=== PATIENT | female | born 1945 | race Caucasian/White ===

== ENCOUNTER 2018-03-01 17:26 | Inpatient (IN) | payer MEDICARE, OTHER ==
[~2018-03-01] VITALS: Ht 152.4 cm; Wt 47.2 kg
--- NOTE | 2018-03-01 18:00 | NUR ---
PT CONFUSED, AGITATED, YELLING, UNCOMFORTABLE. MD NOTIFIED.
[2018-03-01 18:01] LABS: BASOPHILS # (AUTO) 0.1 K/uL (0.0-8.0); BASOPHILS % (AUTO) 1.2 % (0.0-2.0); EOSINOPHILS # (AUTO) 0.2 K/uL (0.0-0.7); EOSINOPHILS % (AUTO) 2.5 % (0.0-7.0); HEMATOCRIT 30.1 % (31.2-41.9); HEMOGLOBIN 10.1 g/dL (10.9-14.3); LYMPHOCYTES # (AUTO) 2.2 K/uL (20.0-40.0); LYMPHOCYTES % (AUTO) 32.8 % (20.5-51.5); MEAN CORPUSCULAR HEMOGLOBIN 29.3 uug (24.7-32.8); MEAN CORPUSCULAR HGB CONC 34 g/dL (32.3-35.6); MEAN CORPUSCULAR VOLUME 86.9 fL (75.5-95.3); MONOCYTES # (AUTO) 0.5 K/uL (2.0-10.0); MONOCYTES % (AUTO) 7.7 % (0.0-11.0); NEUTROPHILS # (AUTO) 3.7 K/uL (1.8-8.9); NEUTROPHILS % (AUTO) 55.8 % (38.5-71.5); PLATELET COUNT (AUTO) 262 K/uL (179-408); RED BLOOD CELL COUNT(AUTO) 3.46 MIL/uL (3.63-4.92); WHITE BLOOD COUNT (AUTO) 6.6 K/uL (3.8-11.8)
[2018-03-01 18:03] LABS: *BLOOD, URINE NEGATIVE (NEGATIVE); *CLARITY,URINE CLEAR (CLEAR); *COLOR,URINE YELLOW (YELLOW); *KETONES,URINE 1+ (NEGATIVE); *PROTEIN,URINE 1+ (NEGATIVE); *UROBILINOGEN,URINE 0.2 E.U./dl (NORMAL); LEUKOCYTE ESTERASE ,URINE NEGATIVE (NEGATIVE); NITRITE, URINE NEGATIVE (NEGATIVE); PH,URINE 5.5 (5.0-8.0); UGLUCOSE NEGATIVE (NEGATIVE)
[2018-03-01 18:04] LABS: *BILIRUBIN,URIN 1+ (NEGATIVE)
[2018-03-01 18:09] LABS: CARBON DIOXIDE 29 mmol/L (21-32); CHLORIDE 107 mmol/L (98-107); CREATININE 0.9 mg/dL (0.6-1.3); GLUCOSE 105 mg/dL (74-106); POTASSIUM 3.9 mmol/L (3.5-5.1); UREA NITROGEN, BLOOD 24 mg/dL (7-18); WBC,URINE 0-3 /HPF (0-3)
[2018-03-01 18:11] LABS: BACTERIA,URINE FEW /HPF (NONE SEEN); SQUAMOUS EPITHELIAL CELL,UR FEW /HPF (NONE SEEN)
[2018-03-01 18:14] LABS: ETHANOL < 3 MG/DL (0-0)
[2018-03-01 18:15] LABS: ALANINE AMINOTRANSFERASE 7 U/L (14-59); ALKALINE PHOSPHATASE 65 U/L (50-136); ASPARTATE AMINOTRANSFERASE 13 U/L (15-37); BILIRUBIN,DIRECT 0.1 mg/dL (0.0-0.2); BILIRUBIN,TOTAL 0.4 mg/dL (0.2-1.0)
[2018-03-01] MEDS ORDERED: MULT1TAB73 PO (18:15)
[2018-03-01] MEDS ORDERED: OMEP20CA10 PO (18:15)
[2018-03-01] MEDS ORDERED: QUET25TA PO (18:15)
[2018-03-01] MEDS ORDERED: CARB-93 PO (18:15)
[2018-03-01] MEDS ORDERED: AMLO2.5T2 PO (18:15)
[2018-03-01] MEDS ORDERED: CLON1TAB5 PO (18:15)
[2018-03-01] MEDS ORDERED: GABA-534 PO (18:15)
[2018-03-01] MEDS ORDERED: CYAN10009 PO (18:15)
[2018-03-01] MEDS ORDERED: FAMO40TA71 PO (18:15)
[2018-03-01] MEDS ORDERED: FOLI1TAB16 PO (18:15)
[2018-03-01] MEDS ORDERED: MIRT15TA PO (18:15)
[2018-03-01] MEDS ORDERED: CALC-1115 PO (18:15)
[2018-03-01] MEDS ORDERED: POLY17PO4 PO (18:15)
[2018-03-01] MEDS ORDERED: LORAZEPAM 2 MG/1 ML VIAL IM ONE ×2 (18:15→19:30)
[2018-03-01] MEDS ORDERED: SER (18:15)
[2018-03-01] MEDS ORDERED: QUET50TA PO ×2 (18:15)
[2018-03-01 18:16] LABS: *AMPHETAMINE, URINE NEGATIVE (NEGATIVE); *BARBITURATE, URINE NEGATIVE (NEGATIVE); *CANNABINOID, URINE NEGATIVE (NEGATIVE); *COCCAINE, URINE NEGATIVE (NEGATIVE); *OPIATE, URINE NEGATIVE (NEGATIVE); *PHENCYCLIDINE SCREEN,URINE NEGATIVE (NEGATIVE)
[2018-03-01] MEDS ORDERED: LORAZEPAM 2 MG/1 ML VIAL ONE ×2 (18:21→19:28)
--- NOTE | 2018-03-01 18:30 | NUR ---
PT MEDICALLY CLEARED.
--- NOTE | 2018-03-01 18:34 | NUR ---
KAY PURDY AT BEDSIDE FOR PSYCH EVAL.
--- NOTE | 2018-03-01 19:15 | NUR ---
REPORT RECEIVED FROM [facility]
--- NOTE | 2018-03-01 19:30 | NUR ---
PT IS AGGITATED AND SCREAMING. MADE AWARE. SITTER IS HERE NOW.
--- NOTE | 2018-03-01 21:03 | NUR ---
PT IN BED. PT IS RESTING WITH EYES CLOSED. SITTER IS AT BEDSIDE. BED IS IN THE LOWEST POSITION WITH SIDERAILS UP. NO SIGNS OF DISTRESS WITNESSED AT THIS TIME.
--- NOTE | 2018-03-01 22:30 | NUR ---
REPORT GIVEN TO MHU NURSE, MARILYN
--- NOTE | 2018-03-01 23:00 | NUR ---
Pt. admitted to MHU, under care of Dr. CLAUDIO/AUGUST Belongs List completed
[2018-03-01] MEDS ORDERED: MAG HYDROX/AL HYDROX/SIMETH 30 ML LIQUID UDC PO PRN (23:15)
[2018-03-01] MEDS ORDERED: ACETAMINOPHEN 650 MG SUPP.RECT RC PRN (23:15)
[2018-03-02] MEDS: ACETAMINOPHEN 325 MG TABLET PO PRN (00:34)
[2018-03-02] MEDS: TEMAZEPAM 7.5 MG CAPSULE PO PRN ×2 (00:34→22:39)
[2018-03-02] MEDS ORDERED: TEMAZEPAM 7.5 MG CAPSULE ONE (00:38)
[2018-03-02] MEDS ORDERED: ACETAMINOPHEN 325 MG TABLET ONE (00:39)
[2018-03-02] MEDS: LORAZEPAM 0.5 MG TABLET PO PRN ×2 (05:39→14:26)
[2018-03-02] MEDS ORDERED: LORAZEPAM 0.5 MG TABLET ONE (05:44)
[2018-03-02 07:30] VITALS: BP 119/54
[2018-03-02] MEDS ORDERED: QUETIAPINE FUMARATE 25 MG TABLET PO PRN (12:00)
[2018-03-02] MEDS ORDERED: MIRALAX 17 GM POWD.PACK PO PRN (13:00)
[2018-03-02] MEDS: OLANZAPINE 2.5 MG TABLET PO SCH ×3 (13:00→18:18)
[2018-03-02] MEDS ORDERED: GABAPENTIN 300 MG CAPSULE PO SCH (13:00)
[2018-03-02] MEDS ORDERED: CARBIDOPA/LEVODOPA 25-100MG TABLET PO SCH (13:51)
[2018-03-02 15:00] VITALS: BP 191/86
[2018-03-02 16:25] VITALS: BP 168/70
[2018-03-02] MEDS ORDERED: OLANZAPINE 10 MG VIAL IM ONE ×2 (16:30→17:00)
[2018-03-02 17:51] VITALS: BP 157/55
--- NOTE | 2018-03-02 18:15 | NUR ---
GPS: Nursing Notes: Severe Agitation: patient is anxious restless confused disoriented difficult to redirect. assisted with adls, sitting up in gerichair with table for supervisor safety deposit at side, patient provided with meds today, patient continues anxious, provided with PRN PO meds continues anxious and restless, resting momentarily, assisted to toilet then resting in bed for maybe 15 to 20 minutes then continues to be restless climbing out of bed patient is fall risk, overestimates without regard for own safety, grabbing at staff, calling out other names, fearful when ambulating redirected for emotional support. continue to monitor redirect and provide medication to assist with coping.
[2018-03-02] MEDS: GABAPENTIN 300 MG CAPSULE PO SCH (18:18)
[2018-03-02] MEDS: CARBIDOPA/LEVODOPA 25-100MG TABLET PO SCH (18:18)
[2018-03-02 19:34] VITALS: BP 160/96
[2018-03-03] MEDS: LORAZEPAM 0.5 MG TABLET PO PRN ×2 (00:22→20:57)
--- NOTE | 2018-03-03 06:26 | NUR ---
Received pt, pt disoriented, confused, experiencing either dementia or psychosis, pt complied with medical science liaison, pt did not sleep well, pt screamed and moaned almost the entire night. Pt would answer questions periodically when asked if she was in pain pt stated "no", when asked if she wanted to go home pt stated "yes", when asked why she was hollering pt stated "that she did not know". When I asked pt if she wanted to stand up because pt appears to be trying to get out of her ambrose chair pt stated "yes". Pt is restless, anxious, A & O X1. Pt consumed 100% of ensure, 1 orange sherbert ice cream and 1 cup of water. Pt has reddish/ pink bruises on her arms. Pt on 1:1 sitter for safety.
[2018-03-03] MEDS: PANTOPRAZOLE SODIUM 40 MG TABLET.DR PO SCH (06:48)
[2018-03-03] MEDS ORDERED: FOLIC ACID 1 MG TABLET PO SCH (09:00)
[2018-03-03] MEDS ORDERED: Medication Not On Formulary EA (Multivitamins (Multivitamin) 1 TAB) PO SCH (09:00)
[2018-03-03] MEDS: CALCIUM CARB/VITAMIN D 600-400 MG TABLET PO SCH (09:33)
[2018-03-03] MEDS: CYANOCOBALAMIN 1,000 MCG TABLET PO SCH (09:33)
[2018-03-03] MEDS: QUETIAPINE FUMARATE 25 MG TABLET PO SCH ×3 (09:34→17:27)
[2018-03-03] MEDS: MULTIVITAMINS,THERAPEUTIC TABLET PO SCH (09:34)
[2018-03-03] MEDS: GABAPENTIN 300 MG CAPSULE PO SCH ×3 (09:35→17:26)
[2018-03-03] MEDS: OLANZAPINE 2.5 MG TABLET PO SCH ×3 (09:36→17:27)
[2018-03-03] MEDS: AMLODIPINE 2.5 MG TABLET PO SCH (09:37)
[2018-03-03] MEDS: CARBIDOPA/LEVODOPA 25-100MG TABLET PO SCH ×3 (09:37→17:26)
--- NOTE | 2018-03-03 10:53 | NUR ---
Initial discharge plan: Patient is currently living at home ([address] [place] [address]) with her , Javier [[phone]] and adult son. Per patients , he would like her to return, but wants to wait to see if patients condition improves. If patient behavior does not improve, he is open to having patient go to a SNF or home with HH. plate take out worker will continue to collaborate with patients and MD on a safe and proper discharge plan.
[2018-03-03] MEDS: FOLIC ACID 0.4 MG TABLET PO SCH (11:57)
[2018-03-03 13:00] VITALS: BP 125/51
--- NOTE | 2018-03-03 19:35 | NUR ---
RECEIVED PATIENT IN HER ROOM, IN BED SHE IS NOTED SLEEPING, BUT EASILY AROUSABLE. SHE IS NOTED A/O X 1. SITTER AT BEDSIDE; CONTINUE ON 1:1 SUPERVISION FOR SAFETY AND FALL PRECAUTION. SHE IS NOTED CALM AND PLEASANT AT THIS TIME. CONTINUE CONFUSED, DISORGANIZED, UNABLE TO VERBALIZE FEELINGS, POOR HISTORIAN, IMPAIRED INSIGHT AND JUDGMENT, FLAT AFFECT, LOW MOOD. SAFETY WAS EMPHASIS. WILL CONTINUE TO MONITOR.
[2018-03-03 20:00] VITALS: BP 145/65
[2018-03-03] MEDS: ACETAMINOPHEN 325 MG TABLET PO PRN (20:57)
--- NOTE | 2018-03-03 21:05 | NUR ---
PATIENT IS NOTED ANXIOUS, AGITATED, AND YELLING AT TIME. SHE WAS REPOSITIONED AND REDIRECTED. TYLENOL 650MG PO PRN AND ATIVAN 0.5MG PO PRN WAS GIVEN PER NURSING ASSESSMENT. WILL CONTINUE TO MONITOR.
[2018-03-03] MEDS: TEMAZEPAM 7.5 MG CAPSULE PO PRN (22:21)
[2018-03-04] MEDS: LORAZEPAM 0.5 MG TABLET PO PRN (06:49)
[2018-03-04] MEDS: PANTOPRAZOLE SODIUM 40 MG TABLET.DR PO SCH (06:58)
[2018-03-04] MEDS: MULTIVITAMINS,THERAPEUTIC TABLET PO SCH (08:20)
[2018-03-04] MEDS: GABAPENTIN 300 MG CAPSULE PO SCH ×3 (08:20→16:08)
[2018-03-04] MEDS: CYANOCOBALAMIN 1,000 MCG TABLET PO SCH (08:20)
[2018-03-04] MEDS: CALCIUM CARB/VITAMIN D 600-400 MG TABLET PO SCH (08:20)
[2018-03-04] MEDS: CARBIDOPA/LEVODOPA 25-100MG TABLET PO SCH ×3 (08:20→16:08)
[2018-03-04] MEDS: OLANZAPINE 2.5 MG TABLET PO SCH ×3 (08:20→16:08)
[2018-03-04] MEDS: AMLODIPINE 2.5 MG TABLET PO SCH (08:21)
[2018-03-04] MEDS: FOLIC ACID 0.4 MG TABLET PO SCH (08:21)
[2018-03-04] MEDS: QUETIAPINE FUMARATE 25 MG TABLET PO SCH ×3 (08:21→16:08)
[2018-03-04 08:38] VITALS: BP 158/59
[2018-03-04 14:47] VITALS: BP 108/50
[2018-03-04] MEDS: busPIRone 5 MG TABLET PO SCH (17:00)
--- NOTE | 2018-03-04 19:45 | NUR ---
RECEIVED PATIENT IN HER ROOM, IN BED SHE IS NOTED SLEEPING, BUT EASILY AROUSABLE. SHE IS NOTED A/O X 1. SITTER AT BEDSIDE; CONTINUE ON 1:1 SUPERVISION FOR SAFETY AND FALL PRECAUTION. SHE IS NOTED CALM AND PLEASANT AT THIS TIME. HOWEVER, UNABLE TO VERBALIZE FEELINGS, POOR HISTORIAN, IMPAIRED INSIGHT AND JUDGMENT, FLAT AFFECT, LOW MOOD. SAFETY WAS EMPHASIS. WILL CONTINUE TO MONITOR.
[2018-03-04 20:00] VITALS: BP 135/61
[2018-03-05] MEDS: ACETAMINOPHEN 325 MG TABLET PO PRN ×2 (00:58→21:55)
[2018-03-05] MEDS: TEMAZEPAM 7.5 MG CAPSULE PO PRN ×2 (00:58→21:54)
[2018-03-05] MEDS: PANTOPRAZOLE SODIUM 40 MG TABLET.DR PO SCH ×2 (07:00→08:18)
[2018-03-05 07:30] VITALS: BP 153/67
[2018-03-05] MEDS: CYANOCOBALAMIN 1,000 MCG TABLET PO SCH (08:17)
[2018-03-05] MEDS: GABAPENTIN 300 MG CAPSULE PO SCH ×3 (08:17→16:17)
[2018-03-05] MEDS: busPIRone 5 MG TABLET PO SCH ×3 (08:17→16:17)
[2018-03-05] MEDS: CARBIDOPA/LEVODOPA 25-100MG TABLET PO SCH ×3 (08:17→16:25)
[2018-03-05] MEDS: CALCIUM CARB/VITAMIN D 600-400 MG TABLET PO SCH (08:18)
[2018-03-05] MEDS: QUETIAPINE FUMARATE 25 MG TABLET PO SCH ×3 (08:18→16:17)
[2018-03-05] MEDS: AMLODIPINE 2.5 MG TABLET PO SCH (08:18)
[2018-03-05] MEDS: MULTIVITAMINS,THERAPEUTIC TABLET PO SCH (08:18)
[2018-03-05] MEDS: FOLIC ACID 0.4 MG TABLET PO SCH (08:19)
[2018-03-05] MEDS: OLANZAPINE 2.5 MG TABLET PO SCH ×3 (08:19→16:17)
[2018-03-05] MEDS: LORAZEPAM 0.5 MG TABLET PO PRN ×2 (08:42→15:29)
[2018-03-05 15:45] VITALS: BP 131/60
--- NOTE | 2018-03-05 19:20 | NUR ---
RECEIVED PATIENT IN HER ROOM, SITTING IN THE CLOVER CHAIR. PPERAS VERY SLEEP. BUT AROUSABLE. NON-VERBAL AT THIS TIME, FLAT AFFECT. SITTER AT BEDSIDE; CONTINUE ON 2:1 SUPERVISION FOR SAFETY AND FALL PRECAUTION. CALM AT THIS TIME. STILL CONFUSED, DISORGANIZED, UNABLE TO VERBALIZE FEELINGS, IMPAIRED INSIGHT AND JUDGMENT LOW MOOD. SAFETY WAS EMPHASIS. WILL CONTINUE TO MONITOR.
[2018-03-05 20:19] VITALS: BP 133/63
[2018-03-06] MEDS: LORAZEPAM 0.5 MG TABLET PO PRN ×2 (00:25→23:32)
[2018-03-06 08:00] VITALS: BP 183/87
[2018-03-06] MEDS: MULTIVITAMINS,THERAPEUTIC TABLET PO SCH (09:07)
[2018-03-06] MEDS: OLANZAPINE 2.5 MG TABLET PO SCH ×3 (09:07→17:54)
[2018-03-06] MEDS: CALCIUM CARB/VITAMIN D 600-400 MG TABLET PO SCH (09:07)
[2018-03-06] MEDS: QUETIAPINE FUMARATE 25 MG TABLET PO SCH ×3 (09:08→17:50)
[2018-03-06] MEDS: CARBIDOPA/LEVODOPA 25-100MG TABLET PO SCH ×3 (09:08→17:50)
[2018-03-06] MEDS: CYANOCOBALAMIN 1,000 MCG TABLET PO SCH (09:08)
[2018-03-06] MEDS: busPIRone 5 MG TABLET PO SCH ×3 (09:08→17:49)
[2018-03-06] MEDS: GABAPENTIN 300 MG CAPSULE PO SCH ×3 (09:09→17:50)
[2018-03-06] MEDS: AMLODIPINE 2.5 MG TABLET PO SCH (09:09)
[2018-03-06] MEDS: FOLIC ACID 0.4 MG TABLET PO SCH (09:11)
[2018-03-06 16:00] VITALS: BP 138/53
[2018-03-06 20:00] VITALS: BP 151/73
[2018-03-06] MEDS: TEMAZEPAM 7.5 MG CAPSULE PO PRN (21:59)
[2018-03-06] MEDS: ACETAMINOPHEN 325 MG TABLET PO PRN (23:36)
--- NOTE | 2018-03-07 04:14 | NUR ---
Received pt to care, pt laying in bed on 1:1 for safety, pt disoriented, confused, A&O X1, rambling to herself, pt complied with taking meds, pt also intermittently made moaning sounds so va underwriter administered PRN restoril and a few hours later ativan 0.5 and tylenol 650. Pt then went to sleep.
[2018-03-07] MEDS: PANTOPRAZOLE SODIUM 40 MG TABLET.DR PO SCH (06:55)
[2018-03-07 07:30] VITALS: BP 165/75
[2018-03-07 08:23] LABS: BASOPHILS # (AUTO) 0.1 K/uL (0.0-8.0); EOSINOPHILS # (AUTO) 0.2 K/uL (0.0-0.7); EOSINOPHILS % (AUTO) 2.5 % (0.0-7.0); MONOCYTES # (AUTO) 0.8 K/uL (2.0-10.0); NEUTROPHILS # (AUTO) 6.2 K/uL (1.8-8.9)
[2018-03-07 08:36] LABS: BASOPHILS % (AUTO) 0.6 % (0.0-2.0); HEMATOCRIT 32.2 % (31.2-41.9); HEMOGLOBIN 10.7 g/dL (10.9-14.3); LYMPHOCYTES # (AUTO) 1.5 K/uL (20.0-40.0); LYMPHOCYTES % (AUTO) 16.8 % (20.5-51.5); MEAN CORPUSCULAR HEMOGLOBIN 28.8 uug (24.7-32.8); MEAN CORPUSCULAR HGB CONC 33 g/dL (32.3-35.6); MEAN CORPUSCULAR VOLUME 86.7 fL (75.5-95.3); MONOCYTES % (AUTO) 8.9 % (0.0-11.0); NEUTROPHILS % (AUTO) 71.2 % (38.5-71.5); PLATELET COUNT (AUTO) 291 K/uL (179-408); RED BLOOD CELL COUNT(AUTO) 3.72 MIL/uL (3.63-4.92)
[2018-03-07 08:37] LABS: WHITE BLOOD COUNT (AUTO) 8.7 K/uL (3.8-11.8)
[2018-03-07 08:38] LABS: CARBON DIOXIDE 30 mmol/L (21-32); CHLORIDE 106 mmol/L (98-107); CREATININE 0.6 mg/dL (0.6-1.3); GLUCOSE 103 mg/dL (74-106); MAGNESIUM 2.1 mg/dL (1.8-2.4); PHOSPHOROUS 3.6 mg/dL (2.5-4.9); POTASSIUM 4.2 mmol/L (3.5-5.1); UREA NITROGEN, BLOOD 29 mg/dL (7-18)
[2018-03-07] MEDS: CALCIUM CARB/VITAMIN D 600-400 MG TABLET PO SCH (09:01)
[2018-03-07] MEDS: CYANOCOBALAMIN 1,000 MCG TABLET PO SCH (09:01)
[2018-03-07] MEDS: busPIRone 5 MG TABLET PO SCH ×3 (09:01→16:59)
[2018-03-07] MEDS: FOLIC ACID 0.4 MG TABLET PO SCH (09:01)
[2018-03-07] MEDS: AMLODIPINE 2.5 MG TABLET PO SCH (09:02)
[2018-03-07] MEDS: CARBIDOPA/LEVODOPA 25-100MG TABLET PO SCH ×3 (09:06→16:59)
[2018-03-07] MEDS: MULTIVITAMINS,THERAPEUTIC TABLET PO SCH (09:06)
[2018-03-07] MEDS: OLANZAPINE 2.5 MG TABLET PO SCH ×3 (09:08→16:59)
[2018-03-07] MEDS: GABAPENTIN 300 MG CAPSULE PO SCH ×3 (09:08→16:59)
[2018-03-07] MEDS: QUETIAPINE FUMARATE 25 MG TABLET PO SCH ×3 (09:10→16:59)
--- NOTE | 2018-03-07 10:09 | NUR ---
Discharge Planning: cloth printing utility worker called to check in with patient's , Javier [[phone]], about potential discharge plan. Per Javier, he would like to continue to monitor patient's care. Ultimately, he would like to see patient return home with him. cloth printing utility worker inquired if Javier would be agreeable with patient going to a SNF when ready to discharge in order to stabilize more. Javier states that "he really can't say right now". However, if patient did need to go to a SNF, then Javier states he would like her to go to [facility] in [place], [place]. cloth printing utility worker agreed to check in with Javier later this week.
[2018-03-07] MEDS: LORAZEPAM 0.5 MG TABLET PO PRN (15:22)
[2018-03-07] MEDS: ACETAMINOPHEN 325 MG TABLET PO PRN (15:22)
--- NOTE | 2018-03-07 15:23 | NUR ---
Patient agitated and screaming. PRN Ativan given
[2018-03-07 16:41] VITALS: BP 154/70
[2018-03-07 19:30] VITALS: BP 132/62
[2018-03-07] MEDS ORDERED: ALBUTEROL SULFATE 2.5 MG/ 0.5 ML NEBU NEB PRN (23:15)
[2018-03-07] MEDS ORDERED: ALBUTEROL SULFATE 2.5 MG/3 ML NEBU ONE (23:21)
--- NOTE | 2018-03-08 02:32 | NUR ---
Pt was coughing and extremely congested earlier this shift, encouraged pt to cough and spit out phlegm but pt unable to follow instructions due to current altered mental status. Dr. Juan Jorge was notified, received orders for suctioning and for breathing treatment. Respiratory therapist was called and came to suction pt and provided breathing treatment. Pt still congested but much improved than earlier. Pt now sleeping, vital signs stable. 1:1 sitter at bedside for close observation. Will continue to monitor pt closely throughout shift.
[2018-03-08] MEDS ORDERED: ALBUTEROL SULFATE 2.5 MG/3 ML NEBU ONE (05:47)
[2018-03-08] MEDS: PANTOPRAZOLE SODIUM 40 MG TABLET.DR PO SCH (06:36)
[2018-03-08 07:30] VITALS: BP 159/73
[2018-03-08] MEDS: FOLIC ACID 0.4 MG TABLET PO SCH (08:49)
[2018-03-08] MEDS: CALCIUM CARB/VITAMIN D 600-400 MG TABLET PO SCH (08:49)
[2018-03-08] MEDS: GABAPENTIN 300 MG CAPSULE PO SCH ×2 (08:49→12:21)
[2018-03-08] MEDS: MULTIVITAMINS,THERAPEUTIC TABLET PO SCH (08:50)
[2018-03-08] MEDS: CYANOCOBALAMIN 1,000 MCG TABLET PO SCH (08:50)
[2018-03-08] MEDS: CARBIDOPA/LEVODOPA 25-100MG TABLET PO SCH ×2 (08:50→12:21)
[2018-03-08] MEDS: OLANZAPINE 2.5 MG TABLET PO SCH ×2 (09:00→12:21)
[2018-03-08] MEDS: QUETIAPINE FUMARATE 25 MG TABLET PO SCH ×2 (09:00→12:21)
[2018-03-08] MEDS: AMLODIPINE 2.5 MG TABLET PO SCH (09:00)
[2018-03-08] MEDS: busPIRone 5 MG TABLET PO SCH ×2 (09:00→12:21)
[2018-03-08] MEDS ORDERED: ALBUTEROL SULFATE 2.5 MG/3 ML NEBU NEB PRN (09:00)
--- NOTE | 2018-03-08 14:00 | NUR ---
Patient is being transferred to Telemetry unit, dx: altered mental status. Pt continues to be congested and require suctioning. Pt is NPO due to aspiration precautions. Pt was ordered swallow eval. Pt is A/O x 0, unable to comprehend instructions. Pt requires max assistance. Pt is sedated at times, but arousable. Pt's Javier Higgins was notified. Report was given to KARYNA Alanis
--- NOTE | 2018-03-08 14:14 | NUR ---
Discharge Planning: artificial marble worker faxed patient packet to [facility][phone: ; fax: ] for review. artificial marble worker received callback from Saundra at facility stating that patient will not be accepted. artificial marble worker will continue to work on a safe and proper discharge for patient.
--- NOTE | 2018-03-08 14:54 | NUR ---
Discharge planning: Patient is being discharged from the Mental Health Unit to the medical floor for further observation. Patient's , Javier [[phone]], has been notified. cripple worker has provided patient with mental health resources including [facility] [[address], [place] [address]; ], [facility] [ ], and [place] [facility] [ ]. Patient was also provided with caregiving resources including [facility] [[phone]], [facility] Care Assistance [[phone]], and [facility] [[phone]]. cripple worker will continue to provide support as needed to patient and family.
[2018-03-08] MEDS ORDERED: busPIRone 5 MG TABLET PO SCH (17:00)
== END 2018-03-08 14:00 | disposition short-term general hospital (02) | DRG 884 ==
LOC: ER 17:29 → GPS 22:43
PROVIDERS: ADMIT Psychiatry & Neurology Psychosomatic Medicine; ATTEND Hospitalist
DX: F06.0 Psychotic disorder with hallucinations due to known physiological condition (principal); F02.80 Dementia in other diseases classified elsewhere, unspecified severity, without behavioral disturbance, psychotic disturbance, mood disturbance, and anxiety; R62.7 Adult failure to thrive; K21.9 Gastro-esophageal reflux disease without esophagitis; F41.9 Anxiety disorder, unspecified; Z87.891 Personal history of nicotine dependence; R26.81 Unsteadiness on feet; G31.83 Neurocognitive disorder with Lewy bodies; E78.5 Hyperlipidemia, unspecified; Z87.440 Personal history of urinary (tract) infections; R13.10 Dysphagia, unspecified; I10 Essential (primary) hypertension
CPT/HCPCS: 36415; 71045; 80307; 83735; 84100; 85025; 87070; 92610; 94640; 97116; 97530; A4663; G0480; J2060; J2358

== ENCOUNTER 2018-03-08 14:20 | Inpatient (IN) | payer MEDICARE, OTHER ==
[~2018-03-08] VITALS: Ht 160 cm; Wt 49.7 kg
[~2018-03-08 14:20] MED LIST: AMLO2.5T2 PO; CALC-1115 PO; CARB-93 PO; CYAN10009 PO; FAMO40TA71 PO; FOLI1TAB16 PO; MULT1TAB73 PO; OMEP20CA10 PO; POLY17PO4 PO
[2018-03-08] MEDS ORDERED: ONDANSETRON 4 MG/2 ML VIAL IV PRN (15:00)
--- NOTE | 2018-03-08 15:00 | NUR ---
Pt received from U lethargic, a&ox1. Pt stable and nad noted upon admission.
[2018-03-08 15:20] VITALS: BP 139/63
[2018-03-08] MEDS: IV D5/ 0.9% NACL 1,000 ML IV PRN (16:00)
[2018-03-08 16:47] LABS: *BILIRUBIN,URIN NEGATIVE (NEGATIVE); *BLOOD, URINE NEGATIVE (NEGATIVE); *COLOR,URINE YELLOW (YELLOW); *KETONES,URINE NEGATIVE (NEGATIVE); *PROTEIN,URINE NEGATIVE (NEGATIVE); *UROBILINOGEN,URINE 0.2 E.U./dl (NORMAL); LEUKOCYTE ESTERASE ,URINE TRACE (NEGATIVE); NITRITE, URINE NEGATIVE (NEGATIVE); UGLUCOSE NEGATIVE (NEGATIVE)
[2018-03-08 16:48] LABS: *CLARITY,URINE SLIGHTLY CLOUDY (CLEAR)
[2018-03-08 16:50] LABS: BACTERIA,URINE MANY /HPF (NONE SEEN); RBC,URINE 0-3 /HPF (0-3); SQUAMOUS EPITHELIAL CELL,UR FEW /HPF (NONE SEEN)
[2018-03-08] MEDS: CARBIDOPA/LEVODOPA 25-100MG TABLET PO SCH (17:00)
[2018-03-08] MEDS: LEVOFLOXACIN 750MG/D5W 750 MG in PREMIXED 1 EACH IV SCH (17:45)
--- NOTE | 2018-03-08 17:56 | NUR ---
ordered blood culture; blood culture drawn first before administering levaquin; pt also seen by Dr Cid; she spoke to pt's ; CT head ordered and carried out; skin care done; will order low air loss mattress and wound care consult.
[2018-03-08 20:00] VITALS: BP 153/87
[2018-03-08] MEDS: ALBUTEROL SULFATE 2.5 MG/3 ML NEBU NEB PRN (23:15)
[2018-03-08] MEDS: IPRATROPIUM BROMIDE 0.5 MG/2.5 ML NEBU NEB PRN (23:15)
[2018-03-09] VITALS (7 sets, daily range): BP systolic 133–178; BP diastolic 65–78
[2018-03-09] MEDS: ACETAMINOPHEN 650 MG SUPP.RECT RC PRN ×3 (02:04→20:51)
[2018-03-09] MEDS ORDERED: ENALAPRILAT DIHYDRATE 1.25 MG/1 ML VIAL IV ONE (02:09)
[2018-03-09] MEDS: ENALAPRILAT DIHYDRATE 1.25 MG/1 ML VIAL IV PRN ×2 (02:15→14:38)
[2018-03-09] MEDS: IV D5/ 0.9% NACL 1,000 ML IV PRN (03:49)
[2018-03-09 06:30] LABS: BASOPHILS % (AUTO) 0.3 % (0.0-2.0); HEMATOCRIT 29.1 % (31.2-41.9); HEMOGLOBIN 9.8 g/dL (10.9-14.3); LYMPHOCYTES # (AUTO) 0.8 K/uL (20.0-40.0); LYMPHOCYTES % (AUTO) 10.3 % (20.5-51.5); MEAN CORPUSCULAR HEMOGLOBIN 29.1 uug (24.7-32.8); MEAN CORPUSCULAR HGB CONC 34 g/dL (32.3-35.6); MEAN CORPUSCULAR VOLUME 86.9 fL (75.5-95.3); MONOCYTES # (AUTO) 0.6 K/uL (2.0-10.0); MONOCYTES % (AUTO) 6.9 % (0.0-11.0); NEUTROPHILS # (AUTO) 6.7 K/uL (1.8-8.9); NEUTROPHILS % (AUTO) 82.5 % (38.5-71.5); PLATELET COUNT (AUTO) 290 K/uL (179-408); RED BLOOD CELL COUNT(AUTO) 3.35 MIL/uL (3.63-4.92); WHITE BLOOD COUNT (AUTO) 8.1 K/uL (3.8-11.8)
[2018-03-09 06:53] LABS: CARBON DIOXIDE 28 mmol/L (21-32); CHLORIDE 110 mmol/L (98-107); CHOLESTEROL 155 mg/dL (<200); CREATININE 0.8 mg/dL (0.6-1.3); GLUCOSE 150 mg/dL (74-106); HDL CHOLESTEROL 77 mg/dL (40-60); MAGNESIUM 2.1 mg/dL (1.8-2.4); PHOSPHOROUS 3.4 mg/dL (2.5-4.9); POTASSIUM 3.8 mmol/L (3.5-5.1); TRIGLYCERIDES 35 MG/DL (30-150); UREA NITROGEN, BLOOD 43 mg/dL (7-18)
[2018-03-09 06:57] LABS: THYROID STIMULATING HORMONE 1.214 mIU/mL (0.358-3.740)
[2018-03-09] MEDS: PANTOPRAZOLE SODIUM 40 MG VIAL IV SCH (08:38)
[2018-03-09] MEDS: Z GUARD REMEDY PASTE 57 GM TUBE TOP PRN (08:49)
[2018-03-09] MEDS: CARBIDOPA/LEVODOPA 25-100MG TABLET PO SCH ×3 (09:00→16:19)
[2018-03-09] MEDS: IPRATROPIUM BROMIDE 0.5 MG/2.5 ML NEBU NEB PRN (09:26)
[2018-03-09] MEDS: ALBUTEROL SULFATE 2.5 MG/3 ML NEBU NEB PRN (09:26)
[2018-03-09] MEDS: POTASSIUM CHLORIDE 10 MEQ in IV D5 1/2 NS 1000 ML 1,000 ML IV PRN (12:31)
[2018-03-09 12:47] LABS: IRON, SERUM 9 ug/dL (50-175)
[2018-03-09] MEDS: LEVOFLOXACIN 750MG/D5W 750 MG in PREMIXED 1 EACH IV SCH (14:37)
--- NOTE | 2018-03-09 18:06 | NUR ---
NURSING NOTES Patient rested well in between care; placed on low air loss mattress and repositioned q2h; seen by Dr Camara and new orders made and carried out; pt remains pulling lines so mittens are maintained and checked q2h; HHN per RT; suction via nasal trumpet and orally as well; at bedside this afternoon; incontinence care done during turning; a/w Swallow eval; pt intermittently awake; pt is also seen by Dr Montemayor and Dr Cid; continue to monitor; continue plan of care.
--- NOTE | 2018-03-09 19:41 | NUR ---
PATIENT IS NONVERBAL BUT RESPONSIVE TO TACTILE STIMULI. NO FACIAL GRIMACING OR SIGNS OF PAIN ON ASSESSMENT. RUNNING LOW GRADE FEVER, WILL MEDICATE ORDERED. SAFETY, ASPIRATION PRECAUTIONS IN PLACE. WILL CONTINUE TO MONITOR PATIENT
[2018-03-09 22:53] LABS: *OCCULT BLOOD STOOL POSITIVE (NEGATIVE)
[2018-03-10] VITALS (7 sets, daily range): BP systolic 154–184; BP diastolic 65–79
[2018-03-10] MEDS: ENALAPRILAT DIHYDRATE 1.25 MG/1 ML VIAL IV PRN ×3 (00:04→19:08)
[2018-03-10] MEDS: POTASSIUM CHLORIDE 10 MEQ in IV D5 1/2 NS 1000 ML 1,000 ML IV PRN ×2 (00:31→11:04)
--- NOTE | 2018-03-10 01:15 | NUR ---
BP ELEVATED AFTER PRN MD SUJATHA MADE AWARE NEW ORDER FOR CLONIDINE PATCH RECEIVED AND CARRIED OUT
[2018-03-10] MEDS ORDERED: CLONIDINE-TTS 1 PATCH TD SCH (01:30)
[2018-03-10] MEDS ORDERED: CLONIDINE-TTS 1 PATCH TD ONE (01:45)
[2018-03-10 05:40] LABS: BASOPHILS % (AUTO) 0.3 % (0.0-2.0); HEMATOCRIT 29.7 % (31.2-41.9); HEMOGLOBIN 9.8 g/dL (10.9-14.3); LYMPHOCYTES # (AUTO) 0.8 K/uL (20.0-40.0); LYMPHOCYTES % (AUTO) 7.7 % (20.5-51.5); MEAN CORPUSCULAR HEMOGLOBIN 28.2 uug (24.7-32.8); MEAN CORPUSCULAR HGB CONC 33 g/dL (32.3-35.6); MEAN CORPUSCULAR VOLUME 85.3 fL (75.5-95.3); MONOCYTES # (AUTO) 0.7 K/uL (2.0-10.0); MONOCYTES % (AUTO) 6.7 % (0.0-11.0); NEUTROPHILS # (AUTO) 9.2 K/uL (1.8-8.9); NEUTROPHILS % (AUTO) 85.3 % (38.5-71.5); PLATELET COUNT (AUTO) 278 K/uL (179-408); RED BLOOD CELL COUNT(AUTO) 3.48 MIL/uL (3.63-4.92); WHITE BLOOD COUNT (AUTO) 10.8 K/uL (3.8-11.8)
[2018-03-10 05:58] LABS: CARBON DIOXIDE 29 mmol/L (21-32); CHLORIDE 110 mmol/L (98-107); CREATININE 0.6 mg/dL (0.6-1.3); GLUCOSE 140 mg/dL (74-106); MAGNESIUM 1.9 mg/dL (1.8-2.4); POTASSIUM 3.2 mmol/L (3.5-5.1); UREA NITROGEN, BLOOD 27 mg/dL (7-18)
--- NOTE | 2018-03-10 06:20 | NUR ---
PATIENT IS ASLEEP AT PRESENT. TYLENOL GIVEN X2 ON THIS SHIFT. HAD 2 EXTRA LARGE BM'S ON THIS SHIFT. NO FACIAL GRIMACING OR SIGNS OF DISTRESS AT THIS TIME. BP STABLE NOW PRN VASOTEC GIVEN, CLONIDINE PATCH APPLIED TO RIGHT UPPER CHEST ORDERED. ASPIRATION AND SAFETY MEASURES MAINTAINED AT ALL TIMES
--- NOTE | 2018-03-10 07:30 | NUR ---
Awake, non verbal, calm, on moderate high back rest. 02 at 2L/NC. NPO maintained. IVF infusing
[2018-03-10] MEDS: PANTOPRAZOLE SODIUM 40 MG VIAL IV SCH (08:44)
[2018-03-10] MEDS: CARBIDOPA/LEVODOPA 25-100MG TABLET PO SCH ×3 (08:47→17:00)
--- NOTE | 2018-03-10 10:00 | NUR ---
Secretions suctioned. Oral care done.
--- NOTE | 2018-03-10 11:00 | NUR ---
BP 184/78, Vasotec given as ordered
[2018-03-10] MEDS: Z GUARD REMEDY PASTE 57 GM TUBE TOP PRN (11:02)
[2018-03-10] MEDS ORDERED: POTASSIUM CHLORIDE 20 MEQ TAB.PRT.SR PO ONE (11:45)
[2018-03-10] MEDS: POTASSIUM CHLORIDE 50 ML IV SCH ×4 (12:01→15:16)
--- NOTE | 2018-03-10 14:00 | NUR ---
Secretions suctioned as ordered. at bedside discussed plan of care regarding PEG placement but not agreeable at this time
[2018-03-10] MEDS ORDERED: LEVOFLOXACIN 750MG/D5W 150 ML IV ONE (15:13)
[2018-03-10] MEDS ORDERED: SODIUM PHOSPHATE MM 15 MM in IV DEXTROSE 5% 250 ML IV ONE (16:00)
[2018-03-10] MEDS: LEVOFLOXACIN 750MG/D5W 750 MG in PREMIXED 1 EACH IV SCH (16:02)
--- NOTE | 2018-03-10 18:00 | NUR ---
Secretions suctioned. Incontinence care done. Repositioned comfortably
--- NOTE | 2018-03-10 20:00 | NUR ---
RECEIVED PT CONGESTED, SUCTIONED VIA R NARE TRUMPET W/ LARGE AMT. OF THICK PALE YELLOWISH MUCOUS.ON O2 2 3LNC W/ O2 SAT OF 97%.IVF D5NS W/ 10 MEQ KCL @ 100CC/HR ON RFA, NO SIGNS OF INFILTRATION.
[2018-03-10] MEDS ORDERED: FENTANYL CITRATE 100 MCG/2 ML AMPUL ONE (20:57)
--- NOTE | 2018-03-10 21:22 | NUR ---
PT. NEEDED FREG. SUCTIONING.
--- NOTE | 2018-03-10 22:00 | NUR ---
NO STOOL NOTED.
[2018-03-11] VITALS: BP 168/80
[2018-03-11] MEDS: IPRATROPIUM BROMIDE 0.5 MG/2.5 ML NEBU NEB PRN (01:14)
[2018-03-11] MEDS: ALBUTEROL SULFATE 2.5 MG/3 ML NEBU NEB PRN (01:14)
--- NOTE | 2018-03-11 01:15 | NUR ---
RESP TX GIVEN BY RT, & SUCTIONED PT INTRANASALLY VIA NASAL TRUMPET W/ LARGE AMT. OF THICK MUCOUS.
[2018-03-11 04:00] VITALS: BP 172/78
[2018-03-11] MEDS: POTASSIUM CHLORIDE 10 MEQ in IV D5 1/2 NS 1000 ML 1,000 ML IV PRN ×2 (05:48→17:22)
--- NOTE | 2018-03-11 06:00 | NUR ---
HAD A SMEAR OF BM. CLEANED & REPOSITIONED W/ HOB ELEVATED. PT SUCTIONED FREQ., ORAL CARE DONE AFTER EACH SUCTION.
[2018-03-11 06:03] LABS: CARBON DIOXIDE 28 mmol/L (21-32); CHLORIDE 110 mmol/L (98-107); CREATININE 0.6 mg/dL (0.6-1.3); GLUCOSE 150 mg/dL (74-106); POTASSIUM 3.5 mmol/L (3.5-5.1); UREA NITROGEN, BLOOD 23 mg/dL (7-18)
[2018-03-11 06:09] LABS: MAGNESIUM 1.9 mg/dL (1.8-2.4)
[2018-03-11 06:17] LABS: BASOPHILS # (AUTO) 0.1 K/uL (0.0-8.0); BASOPHILS % (AUTO) 0.4 % (0.0-2.0); EOSINOPHILS % (AUTO) 0.1 % (0.0-7.0); HEMATOCRIT 28.8 % (31.2-41.9); HEMOGLOBIN 9.5 g/dL (10.9-14.3); LYMPHOCYTES # (AUTO) 0.9 K/uL (20.0-40.0); LYMPHOCYTES % (AUTO) 6.8 % (20.5-51.5); MEAN CORPUSCULAR HEMOGLOBIN 28.1 uug (24.7-32.8); MEAN CORPUSCULAR HGB CONC 33 g/dL (32.3-35.6); MEAN CORPUSCULAR VOLUME 84.8 fL (75.5-95.3); MONOCYTES # (AUTO) 0.7 K/uL (2.0-10.0); MONOCYTES % (AUTO) 5.1 % (0.0-11.0); NEUTROPHILS # (AUTO) 12.1 K/uL (1.8-8.9); NEUTROPHILS % (AUTO) 87.6 % (38.5-71.5); PLATELET COUNT (AUTO) 324 K/uL (179-408); RED BLOOD CELL COUNT(AUTO) 3.39 MIL/uL (3.63-4.92); WHITE BLOOD COUNT (AUTO) 13.8 K/uL (3.8-11.8)
[2018-03-11 06:23] VITALS: BP 168/76
--- NOTE | 2018-03-11 07:42 | NUR ---
Awake, spontaneous eye opening, non verbal. O2 at 3L/NC with intermittent cough and productive secretion. Trumpet to left nasal, secretions suctioned. NPO maintained. IVF infusing
[2018-03-11] MEDS: PANTOPRAZOLE SODIUM 40 MG VIAL IV SCH (08:23)
[2018-03-11] MEDS: CARBIDOPA/LEVODOPA 25-100MG TABLET PO SCH ×3 (08:24→17:00)
[2018-03-11] MEDS: ENALAPRILAT DIHYDRATE 1.25 MG/1 ML VIAL IV PRN (08:24)
--- NOTE | 2018-03-11 10:00 | NUR ---
With intermittent cough, secretions suctioned orally and nasal
[2018-03-11 11:15] VITALS: BP 177/83
[2018-03-11] MEDS ORDERED: LISINOPRIL 20 MG TABLET PO SCH (12:00)
--- NOTE | 2018-03-11 12:27 | NUR ---
WOUND CARE CONSULT: PT PRESENTS WITH BLANCHABLE REDNESS TO SACRUM, PRESENT ON ADMISSION. PT IS IMMOBILE WITH CURRENT RAUL SCORE OF 10. PT ON FIRST STEP CIRS LOW AIRLOSS MATTRESS. ALL SKIN PROTECTION MEASURES IN PLACE AND DISCUSSED WITH NURSING STAFF. WILL SEE PRN. RANGEL IN AGREEMENT WITH PLAN OF CARE. Addendum: 03/11/18 at 1229 by GLADYS GUAJARDO RN Amended: Links added.
[2018-03-11] MEDS: hydrALAZINE HCL 20 MG/1 ML VIAL IV PRN ×2 (12:47→20:04)
--- NOTE | 2018-03-11 13:00 | NUR ---
Speech therapist at bedside, swallow eval done. Recommends strict NPO, Dr. Marquez informed. Elevated BP noted with orders for Hydralazine IV PRN
[2018-03-11] MEDS ORDERED: VANCOMYCIN IV 1 G in PREMIXED 0 EACH IV SCH (14:00)
[2018-03-11] MEDS ORDERED: AZTREONAM 1 G in IV NORMAL SALINE 50 ML IV SCH (14:00)
--- NOTE | 2018-03-11 14:00 | NUR ---
Secretion suctioned. Reposition comfortably
--- NOTE | 2018-03-11 15:00 | NUR ---
at bedside, discussed plan of care
[2018-03-11 15:06] VITALS: BP 165/62
--- NOTE | 2018-03-11 15:18 | NUR ---
Clinical pharmacy note-Vancomycin dosing per pharmacy Subjective: To start Vancomycin dosing on this patient for pneumonia(aspiration type) Objective: BUN 23 scr 0.6 WBC 13.9 Temp 100 Ht 160.02cm Wt 45.983kg Assessment/Plan: Will start Vancomycin 750mg IV every 22 hrs(first dose today at 1600) and draw trough by 4th dose(not ordered yet) for expected trough around 15.81. Will monitor daily.
[2018-03-11] MEDS: LEVOFLOXACIN 750MG/D5W 750 MG in PREMIXED 1 EACH IV SCH (15:34)
[2018-03-11] MEDS: VANCOMYCIN IV 750 MG in IV DEXTROSE 5% 250 ML IV SCH (17:11)
[2018-03-11] MEDS: MEROPENEM 1 G in IV NORMAL SALINE 100 ML IV SCH (18:22)
--- NOTE | 2018-03-11 18:30 | NUR ---
Secretions suctioned. Oral care done. Incontinence care done. Repositioned comfortably
[2018-03-11 20:00] VITALS: BP 156/70
--- NOTE | 2018-03-11 20:00 | NUR ---
RECEIVED PT OPENS HER EYES TO VERBAL, FOLLOWS TO SIMPLE COMMAND. ON O2 @ 4L NC W/ O2 SAT OF 97%. IVF D5NS W/ 10MEQ KCL @ 100CC/HR ON RFA NO SIGNS OF INFILTRATION. C-SCOPE SR. KEPT HOB ELEVATED.
--- NOTE | 2018-03-11 23:00 | NUR ---
PT SUCTIONED FREQ. VIA INTRANASALLY & ORALLY W/ MOD. AMT OF THICK TANNISH MUCOUS.
[2018-03-12] VITALS (7 sets, daily range): BP systolic 154–185; BP diastolic 59–92
[2018-03-12] MEDS: ALBUTEROL SULFATE 2.5 MG/3 ML NEBU NEB PRN (01:12)
[2018-03-12] MEDS: IPRATROPIUM BROMIDE 0.5 MG/2.5 ML NEBU NEB PRN (01:12)
[2018-03-12] MEDS: MEROPENEM 1 G in IV NORMAL SALINE 100 ML IV SCH ×3 (01:53→17:49)
[2018-03-12] MEDS: POTASSIUM CHLORIDE 10 MEQ in IV D5 1/2 NS 1000 ML 1,000 ML IV PRN (04:50)
[2018-03-12] MEDS: hydrALAZINE HCL 20 MG/1 ML VIAL IV PRN (05:22)
--- NOTE | 2018-03-12 06:00 | NUR ---
ORAL CARE DONE. PT NEEDED FREQUENT SUCTIONING. KEPT HOB OF THE ELEVATED. REMAINS NPO.
[2018-03-12 06:32] LABS: BASOPHILS # (AUTO) 0.1 K/uL (0.0-8.0); BASOPHILS % (AUTO) 0.5 % (0.0-2.0); EOSINOPHILS % (AUTO) 0.2 % (0.0-7.0); HEMATOCRIT 28.9 % (31.2-41.9); HEMOGLOBIN 9.7 g/dL (10.9-14.3); LYMPHOCYTES # (AUTO) 1.2 K/uL (20.0-40.0); LYMPHOCYTES % (AUTO) 7.9 % (20.5-51.5); MEAN CORPUSCULAR HEMOGLOBIN 28.3 uug (24.7-32.8); MEAN CORPUSCULAR HGB CONC 34 g/dL (32.3-35.6); MEAN CORPUSCULAR VOLUME 84.6 fL (75.5-95.3); MONOCYTES # (AUTO) 0.9 K/uL (2.0-10.0); MONOCYTES % (AUTO) 5.9 % (0.0-11.0); NEUTROPHILS # (AUTO) 12.7 K/uL (1.8-8.9); NEUTROPHILS % (AUTO) 85.5 % (38.5-71.5); PLATELET COUNT (AUTO) 334 K/uL (179-408); RED BLOOD CELL COUNT(AUTO) 3.42 MIL/uL (3.63-4.92); WHITE BLOOD COUNT (AUTO) 14.9 K/uL (3.8-11.8)
[2018-03-12 06:50] LABS: CARBON DIOXIDE 29 mmol/L (21-32); CHLORIDE 107 mmol/L (98-107); CREATININE 0.6 mg/dL (0.6-1.3); GLUCOSE 146 mg/dL (74-106); MAGNESIUM 1.8 mg/dL (1.8-2.4); PHOSPHOROUS 2.8 mg/dL (2.5-4.9); UREA NITROGEN, BLOOD 21 mg/dL (7-18)
--- NOTE | 2018-03-12 08:00 | NUR ---
AWAKE NO SOB OR PAIN CONTINUE O2 AT 3L VIA N/C HOB UP ON ASPIRATION AND FALL PRECAUTION BED ALARM ON AND CALL LIGHT IN REACH KEEP NPO AT THIS TIME
[2018-03-12] MEDS: PANTOPRAZOLE SODIUM 40 MG VIAL IV SCH (08:32)
[2018-03-12] MEDS: CARBIDOPA/LEVODOPA 25-100MG TABLET PO SCH ×3 (08:33→16:48)
--- NOTE | 2018-03-12 10:30 | NUR ---
DR HILLIARD SEE PATIENT AND LAB RESULT AND KCL IVPB GIVEN ORDER EULOGIO PROCEDURE WELL
[2018-03-12] MEDS: POTASSIUM CHLORIDE 50 ML IV SCH ×6 (10:31→17:49)
[2018-03-12] MEDS: NITROGLYCERIN OINT 1 GM PACKET TP SCH ×2 (10:35→20:07)
--- NOTE | 2018-03-12 10:51 | NUR ---
Clinical pharmacy note-Vancomycin dosing per pharmacy Subjective: To continue Vancomycin dosing on this patient for pneumonia(aspiration type) Objective: BUN 16 scr 0.6 WBC 7.2 Temp 98.3 Ht 160.02cm Wt 45.983kg Assessment/Plan: Will continue same dose of Vancomycin 750mg IV every 22 hrs for today. 2nd dose today at 1400) and draw trough by 4th dose(not ordered yet) for expected trough around 15.81. Will monitor daily.
[2018-03-12] MEDS: VANCOMYCIN IV 750 MG in IV DEXTROSE 5% 250 ML IV SCH (14:40)
[2018-03-12] MEDS: ACETAMINOPHEN 650 MG SUPP.RECT RC PRN (15:56)
--- NOTE | 2018-03-12 16:00 | NUR ---
DR ESPINO SEE PATIENT AND PT NO NEW ORDER
--- NOTE | 2018-03-12 17:15 | NUR ---
REPOSITION Q2 HR AND SUCTION PRN GIVEN MOD OF THICK WHITE MUCOUS ,HAVE 1 SMALL SOFT BM ON ASPIRATION AND FALL PRECAUTION SAFETY MEASURE PROVIDED BED ALARM ON AND CALL LIGHT IN REACH,MOUTH CARE Q2 HR
--- NOTE | 2018-03-12 20:00 | NUR ---
Pt observed to be resting in bed, arousable via verbal and tactile stimuli. No SOB noted at this time, aspiration precautions initiated. No s/s of acute distress noted at this time. BP noted to be 174/87. Will administer BP meds as ordered and reassess.
[2018-03-12] MEDS: LACTOBACILLUS RHAMNOSUS GG 1 EACH CAPSULE PO SCH (20:07)
--- NOTE | 2018-03-12 22:17 | NUR ---
BP reassessed and noted to be 154/71 at this time. Tele monitor sinus rhythm with HR at 83. Will continue to closely monitor. Pt kept clean. Suctioned PRN and frequent repositioning done.
[2018-03-13] MEDS: hydrALAZINE HCL 20 MG/1 ML VIAL IV PRN ×2 (00:11→12:31)
[2018-03-13] MEDS: MEROPENEM 1 G in IV NORMAL SALINE 100 ML IV SCH ×3 (01:17→17:05)
[2018-03-13 01:20] VITALS: BP 125/60
[2018-03-13 03:32] VITALS: BP 106/52
--- NOTE | 2018-03-13 05:22 | NUR ---
Frequent repositioning, all needs attended to. Suctioned PRN. No s/s of acute distress noted at this time. Tele monitor sinus rhythm with HR in the 90's. Safe environment implemented.
[2018-03-13] MEDS: POTASSIUM CHLORIDE 10 MEQ in IV D5 1/2 NS 1000 ML 1,000 ML IV PRN (06:25)
[2018-03-13 06:38] LABS: BASOPHILS # (AUTO) 0.1 K/uL (0.0-8.0); BASOPHILS % (AUTO) 0.4 % (0.0-2.0); EOSINOPHILS % (AUTO) 0.3 % (0.0-7.0); HEMATOCRIT 27.7 % (31.2-41.9); HEMOGLOBIN 9.2 g/dL (10.9-14.3); LYMPHOCYTES # (AUTO) 1.2 K/uL (20.0-40.0); LYMPHOCYTES % (AUTO) 8.4 % (20.5-51.5); MEAN CORPUSCULAR HEMOGLOBIN 28.6 uug (24.7-32.8); MEAN CORPUSCULAR HGB CONC 33 g/dL (32.3-35.6); MONOCYTES # (AUTO) 0.9 K/uL (2.0-10.0); MONOCYTES % (AUTO) 6.4 % (0.0-11.0); NEUTROPHILS # (AUTO) 12.3 K/uL (1.8-8.9); NEUTROPHILS % (AUTO) 84.5 % (38.5-71.5); PLATELET COUNT (AUTO) 316 K/uL (179-408); RED BLOOD CELL COUNT(AUTO) 3.22 MIL/uL (3.63-4.92); WHITE BLOOD COUNT (AUTO) 14.6 K/uL (3.8-11.8)
[2018-03-13 06:49] LABS: CARBON DIOXIDE 28 mmol/L (21-32); CHLORIDE 109 mmol/L (98-107); CREATININE 0.5 mg/dL (0.6-1.3); GLUCOSE 142 mg/dL (74-106); MAGNESIUM 1.8 mg/dL (1.8-2.4); PHOSPHOROUS 2.5 mg/dL (2.5-4.9); POTASSIUM 3.4 mmol/L (3.5-5.1); UREA NITROGEN, BLOOD 20 mg/dL (7-18)
--- NOTE | 2018-03-13 07:45 | NUR ---
DR LOZANO SEE PATIENT AND LAB RESULT KCL IVPB GIVEN ORDER
[2018-03-13 07:55] LABS: BAND % (MANUAL) 5 % (0-10); LYMPHOCYTES % (MANUAL) 11 % (20-40); METAMYELOCYTES % 1 % (0-1); MONOCYTES % (MANUAL) 7 % (2-10); NEUTROPHILS % (MANUAL) 76 % (42-75)
--- NOTE | 2018-03-13 08:00 | NUR ---
AWAKE OPEN EYE NON VERBAL NO ACUTE DISTRESS OR PAIN CONTINUE IVF ANF KEEP NPO FOR NOW WAITTING FOR ST TO BE EVAL MOUTH CARE AND REPOSITION Q2HR SUCTION TOMOUTH AND NOSE PRN MOD WHITE THICK MUCOUS ON FALL/ASPIRATION PRECAUTION BED ALARM ON AND CALL LIGHT IN REACH
[2018-03-13] MEDS: POTASSIUM CHLORIDE 50 ML IV SCH ×2 (08:20→09:17)
[2018-03-13] MEDS: PANTOPRAZOLE SODIUM 40 MG VIAL IV SCH (08:20)
[2018-03-13] MEDS: NITROGLYCERIN OINT 1 GM PACKET TP SCH ×2 (08:25→20:29)
[2018-03-13] MEDS: CARBIDOPA/LEVODOPA 25-100MG TABLET PO SCH ×3 (08:25→16:40)
[2018-03-13] MEDS: LACTOBACILLUS RHAMNOSUS GG 1 EACH CAPSULE PO SCH ×2 (08:25→21:00)
[2018-03-13] MEDS: ACETAMINOPHEN 650 MG SUPP.RECT RC PRN (09:16)
--- NOTE | 2018-03-13 09:53 | NUR ---
Clinical pharmacy note-Vancomycin dosing per pharmacy Subjective: To continue Vancomycin dosing on this patient for pneumonia(aspiration type) Objective: BUN 20 scr 0.5 WBC 14.6 Temp 98.7 Ht 160.02cm Wt 45.983kg Assessment/Plan: Will continue same dose of Vancomycin 750mg IV every 22 hrs for today. 3rd dose today at 1200) and draw trough by 4th dose(not yet ordered ) for expected trough around 15.81. Will monitor daily.
[2018-03-13 11:43] VITALS: BP 167/74
[2018-03-13] MEDS: VANCOMYCIN IV 750 MG in IV DEXTROSE 5% 250 ML IV SCH (11:57)
[2018-03-13] MEDS: POTASSIUM CHLORIDE 40 MEQ in IV 1/2NS 1000 ML 1,000 ML IV SCH ×2 (12:10→23:33)
--- NOTE | 2018-03-13 12:45 | NUR ---
DR HILLIARD WAS CALL REGARDING PATIENT TELE SHOW MULTI PVC AND NON SUSTAIN 5 BEAT AFTER REPOSITION CLEAN AND SUCTION AND MESSAGE LEFT
--- NOTE | 2018-03-13 14:00 | NUR ---
RESTING QUIET AT THIS TIME AT BEDSIDE CLOSED OBSERVATION
--- NOTE | 2018-03-13 14:45 | NUR ---
DR HILLIARD WAS CALL AGAINED AND PATIENT CONDITION TELE SHOW OF MULTIFOCAL PVC NONSUSTAINING X3 NOTIFY ,HE WAS AWARE BUT NO NEW ORDER
--- NOTE | 2018-03-13 15:00 | NUR ---
DR SANDOVAL WAS CALL REGARDING PATIENT NEED STRONGER MED THAN TYLENOL AND NEW ORDER IN CHART
[2018-03-13 15:09] VITALS: BP 177/76
[2018-03-13] MEDS ORDERED: MORPHINE SULFATE 2 MG/1 ML DISP.SYRIN IV PRN (15:15)
--- NOTE | 2018-03-13 15:30 | NUR ---
DR ESPINO SEE PATIENT AND ORDER OK TO INSERTION NGT AND START TF TODAY AND DIETITIN CONSULT WAS ORDER
--- NOTE | 2018-03-13 16:30 | NUR ---
MED MORPHINE GIVEN FOR PAIN PRIOR PLAN TO INSERTION NGT TODAY
[2018-03-13] MEDS: MORPHINE SULFATE 4 MG/1 ML DISP.SYRIN IV PRN ×2 (16:36→20:29)
--- NOTE | 2018-03-13 17:30 | NUR ---
RESTING QUIET NO ACUTE DISTRESS SUCTION TO MOUTH AND NOSE NASOPHAGEAL TUBE MOD AMT OF WHITE MUCOUS OUT CONTINUE O2 AT 3L O2 SAT WNL ON FALL AND ASPIRATION PRECAUTION BED ALARM ON AND CALL LIGHT IN REACH
--- NOTE | 2018-03-13 19:30 | NUR ---
nsg: pt received in respiratory distress, lungs sound coarse, suctioned large amount of thick secretions nasally. tele, ST with hr between 107-120. RT at the bedside. O2 saturation is 100% on 3L. cont to monitor. HOB elevated 45 degrees.
--- NOTE | 2018-03-13 20:00 | NUR ---
nsg: inserted NGT. awaiting for ngt placement verification by cxr.
[2018-03-13 20:27] VITALS: BP 159/72
[2018-03-13] MEDS: ALBUTEROL SULFATE 2.5 MG/3 ML NEBU NEB PRN (21:14)
[2018-03-13] MEDS: IPRATROPIUM BROMIDE 0.5 MG/2.5 ML NEBU NEB PRN (21:14)
--- NOTE | 2018-03-13 21:45 | NUR ---
NSG: radiologist called, ngt is on the lung. ngt removed. will attempt to reinsert.
--- NOTE | 2018-03-13 22:00 | NUR ---
NSG: personnel supervisor KARYNA Gil helped and attempted to reinsert ngt, unable due to patient having respiratory distress that required suctioning, pt also is sob. tele, Sinus tachycardia.
[2018-03-13 22:08] VITALS: BP 143/73
--- NOTE | 2018-03-13 22:27 | NUR ---
NSG: PT ENDORSED TO KARYNA TATE. NO ACUTE DISTRESS NOTED AT THIS TIME. SR MARILU.
--- NOTE | 2018-03-13 22:27 | NUR ---
Received report from KARYNA Lane to take over care of patient. In bed, no signs of distress at this time. Sinus rhythm on monitor.
[2018-03-14 00:54] VITALS: BP 151/73
[2018-03-14] MEDS: MEROPENEM 1 G in IV NORMAL SALINE 100 ML IV SCH ×3 (02:05→18:12)
[2018-03-14] MEDS: MORPHINE SULFATE 4 MG/1 ML DISP.SYRIN IV PRN ×2 (04:58→13:29)
[2018-03-14 05:05] VITALS: BP 144/74
[2018-03-14 05:28] VITALS: BP 188/83
[2018-03-14 06:09] LABS: BASOPHILS # (AUTO) 0.1 K/uL (0.0-8.0); BASOPHILS % (AUTO) 0.5 % (0.0-2.0); EOSINOPHILS % (AUTO) 0.3 % (0.0-7.0); HEMOGLOBIN 9.3 g/dL (10.9-14.3); LYMPHOCYTES # (AUTO) 1.5 K/uL (20.0-40.0); LYMPHOCYTES % (AUTO) 9.5 % (20.5-51.5); MEAN CORPUSCULAR HEMOGLOBIN 28.5 uug (24.7-32.8); MEAN CORPUSCULAR HGB CONC 33 g/dL (32.3-35.6); MEAN CORPUSCULAR VOLUME 85.6 fL (75.5-95.3); MONOCYTES # (AUTO) 0.9 K/uL (2.0-10.0); MONOCYTES % (AUTO) 5.4 % (0.0-11.0); NEUTROPHILS # (AUTO) 13.5 K/uL (1.8-8.9); NEUTROPHILS % (AUTO) 84.3 % (38.5-71.5); PLATELET COUNT (AUTO) 337 K/uL (179-408); RED BLOOD CELL COUNT(AUTO) 3.27 MIL/uL (3.63-4.92)
[2018-03-14 06:24] LABS: CARBON DIOXIDE 27 mmol/L (21-32); CHLORIDE 110 mmol/L (98-107); CREATININE 0.5 mg/dL (0.6-1.3); GLUCOSE 103 mg/dL (74-106); MAGNESIUM 1.9 mg/dL (1.8-2.4); PHOSPHOROUS 2.5 mg/dL (2.5-4.9); POTASSIUM 4.4 mmol/L (3.5-5.1); UREA NITROGEN, BLOOD 19 mg/dL (7-18)
--- NOTE | 2018-03-14 07:30 | NUR ---
RECEIVED PATIENT AT THE START OF SHIFT IN BED CONFUSED DISORIENTED UNABLE TO MAKE NEEDS KNOWN TOTALLY DEPENDENT ON NURSES FOR ALL ADL TURNED AND REPOSITIONED Q2H PATIENT HAS NO NASO GASTRIC TUBE AT THIS TIME AND THE REPORT IS THAT EVERYONE INCLUDING THE ENGINEER STATION MAINLINE HAD ATTEMPTED TO INSERT AND EACH TIME IT ENDED IN THE PATIENTS LUNGS PER THE XRAY VERIFICATION.WILL CONFIRM WITH DR JAIME LOZANO TO THE NEXT PLAN OF CARE MEAN WHILE PATIENT REMAINS NPO.
[2018-03-14] MEDS: NITROGLYCERIN OINT 1 GM PACKET TP SCH ×2 (08:25→20:03)
[2018-03-14] MEDS: PANTOPRAZOLE SODIUM 40 MG VIAL IV SCH (08:25)
[2018-03-14] MEDS: LACTOBACILLUS RHAMNOSUS GG 1 EACH CAPSULE PO SCH ×2 (08:28→20:03)
[2018-03-14] MEDS: CARBIDOPA/LEVODOPA 25-100MG TABLET PO SCH ×3 (08:28→16:08)
[2018-03-14 10:08] LABS: BAND % (MANUAL) 3 % (0-10); BASOPHILS % (MANUAL) 1 % (0-2); LYMPHOCYTES % (MANUAL) 8 % (20-40); MONOCYTES % (MANUAL) 6 % (2-10); MYELOCYTES % 2 % (0-0); NEUTROPHILS % (MANUAL) 80 % (42-75)
[2018-03-14] MEDS: IPRATROPIUM BROMIDE 0.5 MG/2.5 ML NEBU NEB PRN (11:15)
[2018-03-14] MEDS: ALBUTEROL SULFATE 2.5 MG/3 ML NEBU NEB PRN (11:15)
--- NOTE | 2018-03-14 11:26 | NUR ---
PER SAMY RADIOLOGIST STATED THAT DR TY NOTIFIED HIM THAT THE NGT CANNOT BE PLACED UNDER FLOUROSCPY DR LOZANO NOTIFIED WITH NO NEW ORDERS AT THIS TIME.
[2018-03-14 11:50] VITALS: BP 159/73
[2018-03-14] MEDS: hydrALAZINE HCL 20 MG/1 ML VIAL IV PRN (12:18)
--- NOTE | 2018-03-14 12:18 | NUR ---
BLOOD PRESSURE IS 159/73 MEDICATED WITH APRESOLINE ORDERED AND WILL CONTINUE TO OBSERVE.
[2018-03-14] MEDS ORDERED: CLONIDINE TTS 2 PATCH TD SCH (12:30)
--- NOTE | 2018-03-14 13:15 | NUR ---
REPORTED BY THE PAINT MIXER THAT PATIENT HAS HAD ABOUT 25 PVS PER MINUTE AND MULTIFOCAL PATIENT CHECKED BLOOD PRESSURE IS 137/64 HR FLUCTUATED FROM 135 NOW AT 118 PATIENT IS VERY CONFUSED AND DISORIENTED AGITATED AND RESTLESS AT THE BEDSIDE CALLED AND SPOKE WITH DR AZUL AND HE STATED THAT ITS OKAY JUST GIVE HER WHAT EVER SHE HAS TO CALM HER DOWN STATED THAT WITH THE CATAPRESS TTS SHE WILL START TO FEEL BETTER
--- NOTE | 2018-03-14 13:30 | NUR ---
MEDICATED WITH MORPHINE ORDERED WILL OBSERVE IS AT THE BEDSIDE.
[2018-03-14] MEDS: VANCOMYCIN IV 750 MG in IV DEXTROSE 5% 250 ML IV SCH ×2 (13:37→22:09)
[2018-03-14] MEDS: POTASSIUM CHLORIDE 40 MEQ in IV D5 1/2 NS 1000 ML 1,000 ML IV PRN (13:40)
--- NOTE | 2018-03-14 14:56 | NUR ---
Clinical pharmacy note-Vancomycin dosing per pharmacy Subjective: To continue Vancomycin dosing on this patient for pneumonia(aspiration type) Objective: BUN 19 scr 0.5 WBC 16 Temp 98.3 Ht 160.02cm Wt 45.983kg trough 3.3 today at 0930 Tr check: pending tomorrow at 0830 Assessment/Plan: As trough very low, regimen was changed from 750mg q22h to q10hr for new estimated trough of 14.4 (changed conservatively d/t advanced age, and large change in freq). Next level check will be early at 3rd scheduled dose d/t freq change, due tomorrow at 0830. If level is reasonable, will continue regimen and order trough at 4th dose again. Will follow level in am
--- NOTE | 2018-03-14 15:55 | NUR ---
CALLED AND SPOKE WITH DR JAIME LOZANO RE PATIENT IS AGITATED AND RESTLESS MORPHINE ALREADY GIVEN STATED TO CALL THE PSYCHIATRIST CALLED THE U STATED THAT DR MORALES IS ON VACATION AND DR SAMANIEGO IS ANIMAL CHIROPRACTOR SO I CALLED DR SAMANIEGO AND SPOKE WITH HIM STATED WILL BE HERE THIS EVENING TO SEE THE PATIENT.
[2018-03-14 15:56] VITALS: BP 151/71
--- NOTE | 2018-03-14 17:51 | NUR ---
RESTING STILL SOMEWHAT RESTLESS TURNED AND REPOSITION MADE COMFORTABLE REMAIN NPO PENDING NGT PLACEMENT.
--- NOTE | 2018-03-14 18:35 | NUR ---
PATIENT HAS NOT USED THE MITTENS THIS SHIFT LEFT OFF AND WILL APPLY NEEDED
[2018-03-14 20:00] VITALS: BP 158/73
--- NOTE | 2018-03-14 20:00 | NUR ---
PATIENT IS AWAKE IN BED, VERY CONFUSED AND RESTLESS TRYING TO GET OOB, PULLING LINES AND OXYGEN. SAFETY MEASURES IN PLACE, BED ALARM ON. QUIET CALM ENVIRONMENT PROVIDED. WILL CONTINUE TO MONITOR PATIENT
[2018-03-14] MEDS: OLANZAPINE 10 MG VIAL IM PRN (21:50)
[2018-03-15] VITALS: BP 149/75
[2018-03-15] MEDS: MEROPENEM 1 G in IV NORMAL SALINE 100 ML IV SCH ×3 (01:39→17:12)
[2018-03-15] MEDS: POTASSIUM CHLORIDE 40 MEQ in IV D5 1/2 NS 1000 ML 1,000 ML IV PRN ×2 (01:41→13:49)
[2018-03-15] MEDS: MORPHINE SULFATE 4 MG/1 ML DISP.SYRIN IV PRN (03:23)
[2018-03-15 04:00] VITALS: BP 150/87
[2018-03-15 06:05] LABS: BASOPHILS # (AUTO) 0.1 K/uL (0.0-8.0); BASOPHILS % (AUTO) 0.6 % (0.0-2.0); EOSINOPHILS # (AUTO) 0.2 K/uL (0.0-0.7); EOSINOPHILS % (AUTO) 1.5 % (0.0-7.0); HEMATOCRIT 29.9 % (31.2-41.9); LYMPHOCYTES # (AUTO) 1.4 K/uL (20.0-40.0); MEAN CORPUSCULAR HEMOGLOBIN 28.3 uug (24.7-32.8); MEAN CORPUSCULAR HGB CONC 33 g/dL (32.3-35.6); MEAN CORPUSCULAR VOLUME 85.2 fL (75.5-95.3); MONOCYTES # (AUTO) 0.8 K/uL (2.0-10.0); MONOCYTES % (AUTO) 6.5 % (0.0-11.0); NEUTROPHILS # (AUTO) 10.4 K/uL (1.8-8.9); NEUTROPHILS % (AUTO) 80.4 % (38.5-71.5); PLATELET COUNT (AUTO) 376 K/uL (179-408); RED BLOOD CELL COUNT(AUTO) 3.52 MIL/uL (3.63-4.92); WHITE BLOOD COUNT (AUTO) 12.9 K/uL (3.8-11.8)
[2018-03-15 06:31] LABS: CARBON DIOXIDE 30 mmol/L (21-32); CHLORIDE 104 mmol/L (98-107); CREATININE 0.6 mg/dL (0.6-1.3); GLUCOSE 127 mg/dL (74-106); MAGNESIUM 1.8 mg/dL (1.8-2.4); PHOSPHOROUS 2.5 mg/dL (2.5-4.9); POTASSIUM 3.9 mmol/L (3.5-5.1); UREA NITROGEN, BLOOD 12 mg/dL (7-18)
--- NOTE | 2018-03-15 06:32 | NUR ---
PATIENT WITH EPISODES OF AGITATION AND RESTLESS ON THIS SHIFT. PRN MEDS GIVEN ORDERED. SAFETY MEASURES MAINTAINED AT ALL TIMES. CALM QUIET ENVIRONMENT PROVIDED.
[2018-03-15 06:45] LABS: BAND % (MANUAL) 1 % (0-10); EOSINOPHILS % (MANUAL) 1 % (0-8); LYMPHOCYTES % (MANUAL) 10 % (20-40); MONOCYTES % (MANUAL) 8 % (2-10); MYELOCYTES % 1 % (0-0); NEUTROPHILS % (MANUAL) 79 % (42-75)
--- NOTE | 2018-03-15 07:54 | NUR ---
RECEIVED PATIENT IN BED AWAKE ALERT TO SELF BUT CONFUSED AND DISORIENTED MUMBLING INCOHERENTLY WITH O2 IN PROGRESS AT 2L/M BY NASAL CANULA WITH NO SHORTNESS OF BREATH PATIENT REMAINS NOTHING BY MOUTH DUE TO ASPIRATION PENDING NGT PLACEMENT.ORAL CARE GIVEN PATIENT TENDS TO REFUSE AND FIGHT ORAL CARE SHE HAS BILATERAL MITTENS TO PREVENT HER FROM PULLING OUT TUBES AND HEPLOCK REMOVED AND REAPPLIED FOR CIRCULATION IVF REMAINS IN PROGRESS WITH NO S/S OF INFILTERATION ON SITE.TURNED AND REPOSITIONED Q2H ALL NEEDS ANTICIPATED AND SATISFIED MADE COMFORTABLE AND WILL CONTINUE TO OBSERVE
[2018-03-15] MEDS: PANTOPRAZOLE SODIUM 40 MG VIAL IV SCH (08:32)
[2018-03-15] MEDS: NITROGLYCERIN OINT 1 GM PACKET TP SCH ×2 (08:33→21:30)
[2018-03-15] MEDS: CARBIDOPA/LEVODOPA 25-100MG TABLET PO SCH ×3 (08:44→17:00)
[2018-03-15] MEDS: LACTOBACILLUS RHAMNOSUS GG 1 EACH CAPSULE PO SCH ×2 (08:44→21:30)
[2018-03-15] MEDS: VANCOMYCIN IV 750 MG in IV DEXTROSE 5% 250 ML IV SCH ×2 (09:58→19:50)
--- NOTE | 2018-03-15 10:00 | NUR ---
PATIENT REMAINS NOTHING BY MOUTH AT THIS TIME HAS NO NGT AND MD AWARE.
[2018-03-15 11:21] VITALS: BP 154/89
[2018-03-15] MEDS: OLANZAPINE 10 MG VIAL IM PRN ×2 (11:48→21:32)
[2018-03-15] MEDS: hydrALAZINE HCL 20 MG/1 ML VIAL IV PRN (11:51)
--- NOTE | 2018-03-15 11:52 | NUR ---
BLOOD PRESSURE IS 154/89 AND PATIENT IS AGITATED AND RESTLESS THROWING LEGS OVER THE THE RAILS CONFUSED AND DISORIENTED FIXED AND MADE COMFORTABLE MEDICATED WITH APRESOLINE AND ZYPREXA ORDERED AND WILL OBSERVE.
--- NOTE | 2018-03-15 14:45 | NUR ---
Clinical pharmacy note-Vancomycin dosing per pharmacy Subjective: To continue Vancomycin dosing on this patient for pneumonia(aspiration type) Objective: BUN 12 scr 0.6 WBC 12.9 Temp 98.8 Ht 160.02cm Wt 45.983kg trough 3.3 today at 0930 Tr check by 3rd dose at 0830:12.5 Assessment/Plan: As trough very low(3.3 on 03/14 at 0930), regimen was changed from 750mg q22h to q10hr for new estimated trough of 14.4 (changed conservatively d/t advanced age, and large change in freq). Level check was done by 3rd scheduled dose d/t freq change and since level is reasonable, will continue regimen and order trough at 4th dose [facility] Will follow daily. Addendum: 03/15/18 at 1913 by KENNETH ZAMBRANO VANCOMYCIN TROUGH 14.5 CONTINUE VANCOMYCIN 750MG IVPB Q10H
--- NOTE | 2018-03-15 15:00 | NUR ---
PATIENTS IS HERE AT THE BEDSIDE AND STATED THAT HE SPOKE WITH DR REMY JEFF NEXT PLAN OF CARE.
[2018-03-15 15:02] VITALS: BP 127/73
--- NOTE | 2018-03-15 18:05 | NUR ---
DR ALBERTO HERE AND INSERTED NGT AND ORDERED CXR TO CHECK FOR PLACEMENT.STATED IF IN PLACE OK TO START FEEDING WILL CONFIRM WITH THE SHAKE PACKER
[2018-03-15 19:00] VITALS: BP 112/71
[2018-03-16] VITALS: BP 127/59
[2018-03-16] MEDS: POTASSIUM CHLORIDE 40 MEQ in IV D5 1/2 NS 1000 ML 1,000 ML IV PRN ×2 (01:25→13:33)
[2018-03-16] MEDS: MEROPENEM 1 G in IV NORMAL SALINE 100 ML IV SCH ×3 (01:25→18:15)
[2018-03-16 04:00] VITALS: BP 127/57
[2018-03-16] MEDS: VANCOMYCIN IV 750 MG in IV DEXTROSE 5% 250 ML IV SCH ×2 (04:12→14:37)
[2018-03-16 06:20] LABS: BASOPHILS # (AUTO) 0.1 K/uL (0.0-8.0); BASOPHILS % (AUTO) 0.9 % (0.0-2.0); EOSINOPHILS # (AUTO) 0.1 K/uL (0.0-0.7); EOSINOPHILS % (AUTO) 1.1 % (0.0-7.0); HEMATOCRIT 28.3 % (31.2-41.9); HEMOGLOBIN 9.7 g/dL (10.9-14.3); LYMPHOCYTES # (AUTO) 1.3 K/uL (20.0-40.0); LYMPHOCYTES % (AUTO) 11.9 % (20.5-51.5); MEAN CORPUSCULAR HEMOGLOBIN 29.3 uug (24.7-32.8); MEAN CORPUSCULAR HGB CONC 34 g/dL (32.3-35.6); MEAN CORPUSCULAR VOLUME 85.3 fL (75.5-95.3); MONOCYTES # (AUTO) 0.8 K/uL (2.0-10.0); MONOCYTES % (AUTO) 7.4 % (0.0-11.0); NEUTROPHILS # (AUTO) 8.6 K/uL (1.8-8.9); NEUTROPHILS % (AUTO) 78.7 % (38.5-71.5); PLATELET COUNT (AUTO) 412 K/uL (179-408); RED BLOOD CELL COUNT(AUTO) 3.32 MIL/uL (3.63-4.92); WHITE BLOOD COUNT (AUTO) 10.9 K/uL (3.8-11.8)
[2018-03-16 06:37] LABS: CARBON DIOXIDE 28 mmol/L (21-32); CHLORIDE 107 mmol/L (98-107); CREATININE 0.6 mg/dL (0.6-1.3); GLUCOSE 150 mg/dL (74-106); UREA NITROGEN, BLOOD 10 mg/dL (7-18)
[2018-03-16] MEDS: CARBIDOPA/LEVODOPA 25-100MG TABLET PO SCH ×3 (08:25→16:56)
[2018-03-16] MEDS: LACTOBACILLUS RHAMNOSUS GG 1 EACH CAPSULE PO SCH ×2 (08:25→20:01)
[2018-03-16] MEDS: PANTOPRAZOLE SODIUM 40 MG VIAL IV SCH (08:26)
--- NOTE | 2018-03-16 09:00 | NUR ---
Received pt. in bed with eyes closed. Pt. with incoherent sound. On O2 LPM via NC Sat 96%. NGT in placement verified by x-ray. Pt. oral suctioned as needed. Pt.on bilateral mittens of safety and to prevent pulling NGT and IV heplock. Safety precaution in placed. Started feeding at 0800 as ordered. All pt. needs anticipated and attended. Kept pt. clean and dry. All due medications administered as ordered and tolerated well. Call light and all frequently used items in reach. Will continue to monitor accordingly.
[2018-03-16] MEDS: NITROGLYCERIN OINT 1 GM PACKET TP SCH (09:23)
[2018-03-16 11:48] VITALS: BP 113/63
--- NOTE | 2018-03-16 13:17 | NUR ---
Clinical pharmacy note-Vancomycin dosing per pharmacy Subjective: To continue Vancomycin dosing on this patient for pneumonia(aspiration type) Objective: BUN 10 scr 0.6 WBC 10.9 Temp 98.1 Ht 160.02cm Wt 45.983kg Assessment/Plan: Will continue the same dose of 750mg IVPB q10hr for today. Will monitor renal function & adjust the dose if needed. Will follow daily.
[2018-03-16] MEDS ORDERED: CLONIDINE HCL 0.1 MG TABLET PO PRN (14:30)
[2018-03-16] MEDS: AMLODIPINE 5 MG TABLET PO SCH (14:30)
[2018-03-16 16:54] VITALS: BP 121/58
--- NOTE | 2018-03-16 18:58 | NUR ---
End of shift note: Pt. on bedrest throughout this shift. On O2 @ 3 LPM via NC SAT 92%. Pt. on air mattress for skin mgt. No new skin condition noted. Telemetry d'cd today by Dr. Naidu, AM labs ordered (CBC/BMP). All pt. needs attended and promptly met. Pt. at bedside of emotional support. Performed oral suction prn for oral secretion. Oral secretions clear and thin. Pt. on IV Vanco and meropenem for PNA, tolerating well. LFA PIV intact and flushing well. Call light within reached. Will endorse to oncoming shift accordingly.
--- NOTE | 2018-03-16 19:20 | NUR ---
RECEIVED PATIENT LYING IN BED WITH EYES OPEN. NGT IN PLACE. SUCTION SECRETIONS X2 AND ABLE TO OBTAIN MODERATED AMOUNT OF YELLOWISH DRAINAGE. IV SITE ON LEFT FA INTACT AND PATENT. HOB KEPT ELEVATED. SAFETY MEASURE INITIATED.
[2018-03-16 19:23] VITALS: BP 139/67
[2018-03-16] MEDS: OLANZAPINE 10 MG VIAL IM PRN (20:01)
--- NOTE | 2018-03-16 21:00 | NUR ---
Received SBAR report from initial primary care nurse. NGT verified to be in place via auscultation/syringe test. No s/s of respiratory distress noted at this time. Will suction PRN and closely monitor. Safe environment implemented.
[2018-03-16] MEDS: JEVITY 1.2 1000 ML LIQUID GT PRN (21:50)
[2018-03-17] MEDS: VANCOMYCIN IV 750 MG in IV DEXTROSE 5% 250 ML IV SCH ×3 (01:16→20:26)
[2018-03-17] MEDS: MEROPENEM 1 G in IV NORMAL SALINE 100 ML IV SCH ×3 (02:43→17:34)
[2018-03-17 03:38] VITALS: BP 146/59
[2018-03-17 06:34] LABS: CARBON DIOXIDE 31 mmol/L (21-32); CHLORIDE 106 mmol/L (98-107); CREATININE 0.5 mg/dL (0.6-1.3); GLUCOSE 116 mg/dL (74-106); UREA NITROGEN, BLOOD 13 mg/dL (7-18)
--- NOTE | 2018-03-17 06:40 | NUR ---
Frequent repositioning done. NGT feeding off at 6 am, no s/s of acute distress noted at this time. Suctioned PRN. Oral care done, pt kept clean and dry. Safe environment implemented.
--- NOTE | 2018-03-17 07:10 | NUR ---
RECEIVED PT AOX1, NOTED GURGLY SOUNDS, PT WAS ORALLY SUCTIONED. AIR MATTRESS IN PLACE, BED AT LOWEST POSITION FOR SAFETY AND CALL LIGHT WITHIN REACH FOR ASSISTANCE. NO IMMEDIATE S/SX OF SOB, PAIN, DISTRESS OR DISCOMFORT. NOTED FEEDING OFF, BED AT HIGH FOWLERS
[2018-03-17 07:16] LABS: BASOPHILS # (AUTO) 0.1 K/uL (0.0-8.0); BASOPHILS % (AUTO) 1.2 % (0.0-2.0); EOSINOPHILS # (AUTO) 0.2 K/uL (0.0-0.7); EOSINOPHILS % (AUTO) 1.9 % (0.0-7.0); HEMATOCRIT 27.1 % (31.2-41.9); HEMOGLOBIN 9.2 g/dL (10.9-14.3); LYMPHOCYTES # (AUTO) 1.6 K/uL (20.0-40.0); LYMPHOCYTES % (AUTO) 16.1 % (20.5-51.5); MEAN CORPUSCULAR HGB CONC 34 g/dL (32.3-35.6); MEAN CORPUSCULAR VOLUME 85.3 fL (75.5-95.3); MONOCYTES # (AUTO) 0.6 K/uL (2.0-10.0); MONOCYTES % (AUTO) 6.1 % (0.0-11.0); NEUTROPHILS # (AUTO) 7.5 K/uL (1.8-8.9); NEUTROPHILS % (AUTO) 74.7 % (38.5-71.5); PLATELET COUNT (AUTO) 392 K/uL (179-408); RED BLOOD CELL COUNT(AUTO) 3.17 MIL/uL (3.63-4.92); WHITE BLOOD COUNT (AUTO) 10.1 K/uL (3.8-11.8)
--- NOTE | 2018-03-17 08:15 | NUR ---
Pt was suctioned orally
[2018-03-17] MEDS: CARBIDOPA/LEVODOPA 25-100MG TABLET PO SCH ×3 (08:24→16:33)
[2018-03-17] MEDS: PANTOPRAZOLE SODIUM 40 MG VIAL IV SCH (08:24)
[2018-03-17] MEDS: LACTOBACILLUS RHAMNOSUS GG 1 EACH CAPSULE PO SCH ×2 (08:24→20:11)
[2018-03-17] MEDS: AMLODIPINE 5 MG TABLET PO SCH ×2 (08:25→16:33)
[2018-03-17 08:40] VITALS: BP 144/67
--- NOTE | 2018-03-17 08:42 | NUR ---
Pt was suctioned
--- NOTE | 2018-03-17 09:38 | NUR ---
Pt was orally suctioned
--- NOTE | 2018-03-17 10:29 | NUR ---
Pt suctioned orally. B/P 160/68 HR 99. Clonidine 0.1mg given Addendum: 03/17/18 at 1036 by YONIS LEI RN Mouth care also provided
--- NOTE | 2018-03-17 11:00 | NUR ---
Removed restraints at this time. Pt is sleeping at this time
[2018-03-17 11:15] VITALS: BP 168/68
--- NOTE | 2018-03-17 12:20 | NUR ---
Clinical pharmacy note-Vancomycin dosing per pharmacy Subjective: To continue Vancomycin dosing on this patient for pneumonia(aspiration type) Objective: BUN 13 scr 0.5 WBC 10.1 Temp 98 Vanco trough level: 16.6 Ht 160.02cm Wt 45.983kg Assessment/Plan: Since vanco trough level is within therapeutic range, will continue the same dose of 750mg IVPB q10hr for today. Next dose due today at 1100. Will monitor renal function & adjust the dose if needed. Will follow daily.
--- NOTE | 2018-03-17 15:10 | NUR ---
by bedside. Pt was orally suctioned. Pt attempts to verbally communicate, still sounds gurgly.
[2018-03-17 15:20] VITALS: BP 122/57
--- NOTE | 2018-03-17 18:00 | NUR ---
PT SLEEPING AT THIS TIME. PT HAS BEEN COMPLIANT WITH NURSING CARE AND MEDICATIONS
[2018-03-17] MEDS: MORPHINE SULFATE 4 MG/1 ML DISP.SYRIN IV PRN (20:11)
[2018-03-17 20:21] VITALS: BP 152/71
[2018-03-17] MEDS: JEVITY 1.2 1000 ML LIQUID GT PRN (20:32)
[2018-03-17] MEDS: Z GUARD REMEDY PASTE 57 GM TUBE TOP PRN (21:02)
[2018-03-18] MEDS: MEROPENEM 1 G in IV NORMAL SALINE 100 ML IV SCH ×3 (02:13→19:22)
[2018-03-18 05:05] VITALS: BP 138/55
--- NOTE | 2018-03-18 05:28 | NUR ---
Bed bath provided today, left arm heplock infiltrated, started a new IV line to her right forearm [id number]. Tolerated Jevity 1.2 sameera continuos feeding at 55 ml/hr. No residual noted. NGT feeding clamped for now, to resume feeding at 0800 AM.
--- NOTE | 2018-03-18 05:33 | NUR ---
Repositioned in bed. Bilateral soft hand mittens released for now, but patient attempted to pull out NGT & IV line. Placed back soft hand mittens for safety. Will continue to monitor.
[2018-03-18] MEDS: VANCOMYCIN IV 750 MG in IV DEXTROSE 5% 250 ML IV SCH ×2 (06:47→17:42)
[2018-03-18] MEDS: LACTOBACILLUS RHAMNOSUS GG 1 EACH CAPSULE PO SCH ×2 (08:01→21:32)
[2018-03-18] MEDS: CARBIDOPA/LEVODOPA 25-100MG TABLET PO SCH ×3 (08:01→17:42)
[2018-03-18] MEDS: PANTOPRAZOLE SODIUM 40 MG VIAL IV SCH (08:01)
[2018-03-18] MEDS: AMLODIPINE 5 MG TABLET PO SCH ×2 (08:02→17:42)
--- NOTE | 2018-03-18 08:15 | NUR ---
Medications given tolerated well, NG tube feeding tolerating well. NC and sterile water for inhalation changed
[2018-03-18 11:08] VITALS: BP 153/68
[2018-03-18] MEDS: hydrALAZINE HCL 20 MG/1 ML VIAL IV PRN (11:11)
[2018-03-18] MEDS ORDERED: Z GUARD REMEDY PASTE 57 GM TUBE TOP PRN (11:15)
--- NOTE | 2018-03-18 11:15 | NUR ---
BP taken by RN LICENSED PRACTICAL was 153/68 HR 90. Hydralazine IV push 0.5mg given
[2018-03-18 12:36] VITALS: BP 114/44
--- NOTE | 2018-03-18 12:37 | NUR ---
Rechecked BP 114/41, HR 91
--- NOTE | 2018-03-18 13:05 | NUR ---
Clinical pharmacy note-Vancomycin dosing per pharmacy Subjective: To continue Vancomycin dosing on this patient for pneumonia(aspiration type) Objective: BUN 13(03/18) scr 0.5(03/18) WBC 10.1(03/18) Temp 98 Vanco trough level: 16.6 on 03/17 at 1030 Ht 160.02cm Wt 45.983kg Assessment/Plan: Will continue the same dose of 750mg IVPB q10hr . Next dose due today at 1700. Will monitor renal function & adjust the dose if needed. Will follow daily.
[2018-03-18 15:48] VITALS: BP 139/65
[2018-03-18 19:55] VITALS: BP 147/68
--- NOTE | 2018-03-18 20:05 | NUR ---
Patient received at bed. No acute distress or SOB noted. NG feeding running. head of the bed elevated, brake and alarm on, Safety measures maintained. Continue to monitor.
[2018-03-18] MEDS: MORPHINE SULFATE 4 MG/1 ML DISP.SYRIN IV PRN (21:32)
[2018-03-19] MEDS: MEROPENEM 1 G in IV NORMAL SALINE 100 ML IV SCH ×3 (01:42→17:04)
[2018-03-19] MEDS: VANCOMYCIN IV 750 MG in IV DEXTROSE 5% 250 ML IV SCH ×3 (02:22→22:15)
[2018-03-19 05:06] VITALS: BP 133/63
[2018-03-19 06:09] LABS: BASOPHILS # (AUTO) 0.1 K/uL (0.0-8.0); BASOPHILS % (AUTO) 1.1 % (0.0-2.0); EOSINOPHILS # (AUTO) 0.3 K/uL (0.0-0.7); EOSINOPHILS % (AUTO) 3.3 % (0.0-7.0); HEMATOCRIT 26.6 % (31.2-41.9); HEMOGLOBIN 9.1 g/dL (10.9-14.3); LYMPHOCYTES # (AUTO) 1.2 K/uL (20.0-40.0); LYMPHOCYTES % (AUTO) 11.8 % (20.5-51.5); MEAN CORPUSCULAR HEMOGLOBIN 29.1 uug (24.7-32.8); MEAN CORPUSCULAR HGB CONC 34 g/dL (32.3-35.6); MONOCYTES # (AUTO) 0.6 K/uL (2.0-10.0); MONOCYTES % (AUTO) 6.2 % (0.0-11.0); NEUTROPHILS # (AUTO) 7.8 K/uL (1.8-8.9); NEUTROPHILS % (AUTO) 77.6 % (38.5-71.5); PLATELET COUNT (AUTO) 433 K/uL (179-408); RED BLOOD CELL COUNT(AUTO) 3.12 MIL/uL (3.63-4.92)
[2018-03-19 06:18] LABS: CARBON DIOXIDE 33 mmol/L (21-32); CHLORIDE 106 mmol/L (98-107); CREATININE 0.5 mg/dL (0.6-1.3); GLUCOSE 127 mg/dL (74-106); POTASSIUM 3.8 mmol/L (3.5-5.1); UREA NITROGEN, BLOOD 19 mg/dL (7-18)
--- NOTE | 2018-03-19 06:30 | NUR ---
NG TUBE FEEDING OFF AT 6 AM ORDERED. HOB UP. STILL ON SOFT WRIST RESTRAINT. SAFETY MEASURES RENDERED.
--- NOTE | 2018-03-19 07:36 | NUR ---
PATIENT IS CONFUSED AND DISORIENTED MANAGED TO REMOVE THE RIGHT HAND MITTENS AND PULLED OUT HER NGT WILL TRY TO REINSERT FEEDING IS OFF UNTIL 0800 PER ORDERS PATIENT UNABLE TO STATED WHY SHE PULLED OUT HER TUBE RELATED TO CONFUSSION.
--- NOTE | 2018-03-19 08:07 | NUR ---
NGT REINSERTED DR ALBERTO AWARE AND STAT CHEST XRAY ORDERED TO CHECK PLACEMENT.MITTENS SECURELY REAPPLIED AND PATIENT MEDICATED WITH ZYPREXA BECAUSE SHE IS ATTEMPTING TO GET OUT OF BED AGITATED RESTLESS PULLING ON EVERYTHING MADE COMFORTABLE AND WILL CONTINUE TO OBSERVE.
[2018-03-19] MEDS: PANTOPRAZOLE SODIUM 40 MG VIAL IV SCH (08:52)
--- NOTE | 2018-03-19 09:16 | NUR ---
RESULT OF THE CHEST XRAY RECEIVED AND REVIEWED BY DR QUINTERO STATED TO ADVANCE THE TUBE TO ABOUT 58-60 AND THE RECHECK THE CXR FOR CORRECT PLACEMENT.
--- NOTE | 2018-03-19 09:54 | NUR ---
SECOND CHEST XRAY CONFIRMED THAT THE NGT IS NOW IN THE STOMACH FEEDING RESTATED AND DUE MEDICATIONS GIVEN AT THIS TIME.
[2018-03-19] MEDS: CARBIDOPA/LEVODOPA 25-100MG TABLET PO SCH ×3 (09:55→16:21)
[2018-03-19] MEDS: AMLODIPINE 5 MG TABLET PO SCH ×2 (09:55→16:21)
[2018-03-19] MEDS: LACTOBACILLUS RHAMNOSUS GG 1 EACH CAPSULE PO SCH ×2 (09:55→20:07)
[2018-03-19 11:16] VITALS: BP 124/52
--- NOTE | 2018-03-19 12:49 | NUR ---
SUCTIONED SO MANY TIMES WITH THICK WHITE SECRETIONS WITH ORAL CARE MADE COMFORTABLE.
--- NOTE | 2018-03-19 14:06 | NUR ---
Clinical pharmacy note-Vancomycin dosing per pharmacy Subjective: To continue Vancomycin dosing on this patient for pneumonia(aspiration type) Objective: BUN 19 scr 0.5 WBC 10.0 Temp 98 Vanco trough level: 16.6 on 03/17 at 1030 Ht 160.02cm Wt 45.983kg Assessment/Plan: Will continue the same dose of 750mg IVPB q10hr . Next dose due today at 2300. Will monitor renal function & adjust the dose if needed. Will follow daily.
[2018-03-19 15:42] VITALS: BP 139/53
--- NOTE | 2018-03-19 17:13 | NUR ---
RESTING WITH NGT INTACT PLACEMENT CHECKED AND VERIFIED NO GASTRIC RESIDUAL AT THIS TIME IV ANTIBIOTICS GIVEN ORDERED REMAIN WITH DIMINISHED BREATH SOUNDS WITH RALES ORAL CARE GIVEN MADE COMFORTABLE AND WILL CONTINUE TO OBSERVE.
--- NOTE | 2018-03-19 19:20 | NUR ---
RECEIVED PATIENT LYING IN BED. AAOX1. NGT IN PLACE. SUCTION SECRETIONS X1 AND OBTAINED SMALL AMOUNT OF SECRETION. IV SITE ON RIGHT FA INTACT AND PATENT. APPEARS SLIGHTLY ANXIOUS. CHECK HAND MITTENS AND REMAINS INTACT. CIRCULATION CHECK AROUND HAND. HOB KEPT ELEVATED. SAFETY MEASURE INITIATED.
[2018-03-19 19:41] VITALS: BP 141/57
[2018-03-19] MEDS: OLANZAPINE 10 MG VIAL IM PRN (20:07)
[2018-03-19] MEDS: JEVITY 1.2 1000 ML LIQUID GT PRN (21:08)
[2018-03-20] MEDS: MEROPENEM 1 G in IV NORMAL SALINE 100 ML IV SCH ×3 (01:12→17:07)
[2018-03-20 04:59] VITALS: BP 122/61
--- NOTE | 2018-03-20 06:09 | NUR ---
AAOX1. NGT IN PLACE. SUCTION SECRETIONS PRN AND OBTAINED SMALL AMOUNT OF SECRETIONS. O2 AT 2LPM VIA NC. O2 SAT AT 97%. IV SITE ON RIGHT FA INTACT AND PATENT. NO ADVERSE REACTION NOTED FROM IV ABX. HOB KEPT ELEVATED. SAFETY MEASURE MAINTAINED.
[2018-03-20 06:39] LABS: BASOPHILS # (AUTO) 0.1 K/uL (0.0-8.0); BASOPHILS % (AUTO) 1.2 % (0.0-2.0); EOSINOPHILS # (AUTO) 0.3 K/uL (0.0-0.7); EOSINOPHILS % (AUTO) 2.6 % (0.0-7.0); HEMATOCRIT 26.6 % (31.2-41.9); LYMPHOCYTES # (AUTO) 1.6 K/uL (20.0-40.0); LYMPHOCYTES % (AUTO) 15.3 % (20.5-51.5); MEAN CORPUSCULAR HEMOGLOBIN 29.2 uug (24.7-32.8); MEAN CORPUSCULAR HGB CONC 34 g/dL (32.3-35.6); MEAN CORPUSCULAR VOLUME 85.9 fL (75.5-95.3); MONOCYTES # (AUTO) 0.6 K/uL (2.0-10.0); MONOCYTES % (AUTO) 5.3 % (0.0-11.0); NEUTROPHILS # (AUTO) 7.9 K/uL (1.8-8.9); NEUTROPHILS % (AUTO) 75.6 % (38.5-71.5); PLATELET COUNT (AUTO) 474 K/uL (179-408); WHITE BLOOD COUNT (AUTO) 10.4 K/uL (3.8-11.8)
[2018-03-20 07:00] LABS: CARBON DIOXIDE 33 mmol/L (21-32); CHLORIDE 108 mmol/L (98-107); CREATININE 0.6 mg/dL (0.6-1.3); GLUCOSE 96 mg/dL (74-106); POTASSIUM 4.3 mmol/L (3.5-5.1); UREA NITROGEN, BLOOD 21 mg/dL (7-18)
--- NOTE | 2018-03-20 07:34 | NUR ---
AWAKE CONFUSED DISORIENTED NOTED OCCASSIONAL COUGH EPISODES WITH CONGESTION NGT REMAINS INTACT PLACEMENT AND PATENCY CHECKED AND VERIFIED BILATERAL MITTENS REMAINS IN PLACE TO PREVENT PATIENT FROM PULLING OUT TUBES CIRCULATION CHECKED REMOVED AND REAPPLIED.HEAD OF BED IS UP WITH O2 WITH NO SHORTNESS OF BREATH.TURNED AND REPOSITIONED Q2H MADE COMFORTABLE AND WILL CONTINUE TO OBSERVE.
[2018-03-20] MEDS: VANCOMYCIN IV 750 MG in IV DEXTROSE 5% 250 ML IV SCH ×2 (08:29→18:53)
[2018-03-20] MEDS: LACTOBACILLUS RHAMNOSUS GG 1 EACH CAPSULE PO SCH ×2 (08:29→20:06)
[2018-03-20] MEDS: CARBIDOPA/LEVODOPA 25-100MG TABLET PO SCH ×3 (08:29→17:07)
[2018-03-20] MEDS: PANTOPRAZOLE SODIUM 40 MG VIAL IV SCH (08:44)
[2018-03-20] MEDS: AMLODIPINE 5 MG TABLET PO SCH ×2 (08:45→17:09)
--- NOTE | 2018-03-20 10:11 | NUR ---
PATIENT SEEN AND EXAMINED BY DR ALBERTO WITH NEW ORDERS AND NOTED PATIENT IS MORE ALERT MORE AWAKE AND HER SPEECH IS MORE AUDIBLE BUT STILL VERY CONGESTED REQUIRING SUCTIONING HAS MITTENS FOR THE SAFETY OF THE NGT AND IVS.
--- NOTE | 2018-03-20 11:00 | NUR ---
CONFUSED DISORIENTED ATTEMPTING TO GET OUT OF BED SO MANY TIMES UNABLE TO REDIRECT LOOKING FOR HER MEDICATED WITH ZYPREXA ORDERED MADE COMFORTABLE AND WILL CONTINUE TO OBSERVE.
[2018-03-20] MEDS: OLANZAPINE 10 MG VIAL IM PRN ×2 (11:01→20:07)
[2018-03-20 11:31] VITALS: BP 132/57
--- NOTE | 2018-03-20 12:06 | NUR ---
Clinical pharmacy note-Vancomycin dosing per pharmacy Subjective: To continue Vancomycin dosing on this patient for pneumonia(aspiration type) Objective: BUN 21 scr 0.6 WBC 10.4 Temp 98.2 Vanco trough level: 16.6 on 03/17 at 1030 Ht 160.02cm Wt 45.983kg Assessment/Plan: Will continue the same dose of 750mg IVPB q10hr . Next dose due today at 1900. Will monitor renal function & adjust the dose if needed. Will follow daily.
[2018-03-20 16:19] VITALS: BP 128/51
[2018-03-20] MEDS: Z GUARD REMEDY PASTE 57 GM TUBE TOP PRN (18:47)
[2018-03-20 19:00] VITALS: BP 158/65
--- NOTE | 2018-03-20 19:00 | NUR ---
TOLERATING NGT FEEDINGS ORDERED WITH OLAF FOR SAFETY TO PREVENT FROM PULLING OUT TUBES CIRCULATION CHECKED Q2H ORAL CARE GIVEN TURNED AND REPOSITIONED Q2H MADE COMFORTABLE.
--- NOTE | 2018-03-20 19:20 | NUR ---
RECEIVED PATIENT LYING IN BED. AAOX1. NGT IN PLACE. NGT FEEDING INFUSING. IV SITE ON RIGHT FA INTACT AND PATENT. APPEARS SLIGHTLY ANXIOUS. REORIENTATION AND DISTRACTION PROVIDED. HAND MITTENS IN PLACE. CIRCULATION CHECKED AROUND HAND. HOB KEPT ELEVATED. SAFETY MEASURE INITIATED.
[2018-03-20] MEDS: Z GUARD REMEDY PASTE 57 GM TUBE TOP SCH (20:06)
[2018-03-20] MEDS: JEVITY 1.2 1000 ML LIQUID GT PRN (21:14)
--- NOTE | 2018-03-20 21:30 | NUR ---
PATIENT LAST BM WAS 03/17/18. ADMINISTRATIVE SUPPORT SPECIALIST KARLENE MADE AWARE AND OBTAIN ORDER FOR MILK OF MAGNESIA 30ML DAILY PRN. ORDER NOTED, WILL PROVIDE MOM ONCE VERIFIED.
[2018-03-20] MEDS ORDERED: MAGNESIUM HYDROXIDE 30 ML LIQUID UDC NG PRN (21:45)
[2018-03-21] MEDS: MEROPENEM 1 G in IV NORMAL SALINE 100 ML IV SCH ×3 (01:29→17:23)
[2018-03-21 04:00] VITALS: BP 134/56
[2018-03-21] MEDS: VANCOMYCIN IV 750 MG in IV DEXTROSE 5% 250 ML IV SCH ×2 (05:11→15:34)
--- NOTE | 2018-03-21 06:07 | NUR ---
AAOX1. NGT IN PLACE. SUCTION SECRETIONS PRN AND OBTAINED SMALL AMOUNT OF SECRETIONS. O2 AT 2LPM VIA NC. O2 SAT AT 100%. IV SITE ON RIGHT FA INTACT AND PATENT. NO ADVERSE EFFECT NOTED FROM IV ABX. HOB KEPT ELEVATED. SAFETY MEASURE MAINTAINED.
[2018-03-21 06:28] LABS: CARBON DIOXIDE 36 mmol/L (21-32); CHLORIDE 110 mmol/L (98-107); CREATININE 0.5 mg/dL (0.6-1.3); GLUCOSE 102 mg/dL (74-106); POTASSIUM 4.1 mmol/L (3.5-5.1); UREA NITROGEN, BLOOD 21 mg/dL (7-18)
[2018-03-21 07:08] LABS: BASOPHILS # (AUTO) 0.1 K/uL (0.0-8.0); BASOPHILS % (AUTO) 1.2 % (0.0-2.0); EOSINOPHILS # (AUTO) 0.3 K/uL (0.0-0.7); EOSINOPHILS % (AUTO) 2.9 % (0.0-7.0); HEMATOCRIT 25.6 % (31.2-41.9); HEMOGLOBIN 8.7 g/dL (10.9-14.3); LYMPHOCYTES # (AUTO) 1.3 K/uL (20.0-40.0); MEAN CORPUSCULAR HEMOGLOBIN 29.3 uug (24.7-32.8); MEAN CORPUSCULAR HGB CONC 34 g/dL (32.3-35.6); MEAN CORPUSCULAR VOLUME 86.1 fL (75.5-95.3); MONOCYTES # (AUTO) 0.7 K/uL (2.0-10.0); MONOCYTES % (AUTO) 7.5 % (0.0-11.0); NEUTROPHILS # (AUTO) 6.8 K/uL (1.8-8.9); NEUTROPHILS % (AUTO) 74.4 % (38.5-71.5); PLATELET COUNT (AUTO) 442 K/uL (179-408); RED BLOOD CELL COUNT(AUTO) 2.97 MIL/uL (3.63-4.92); WHITE BLOOD COUNT (AUTO) 9.1 K/uL (3.8-11.8)
[2018-03-21] MEDS: PANTOPRAZOLE SODIUM 40 MG VIAL IV SCH (08:56)
[2018-03-21] MEDS: LACTOBACILLUS RHAMNOSUS GG 1 EACH CAPSULE PO SCH ×2 (08:56→20:03)
[2018-03-21] MEDS: CARBIDOPA/LEVODOPA 25-100MG TABLET PO SCH ×3 (08:56→17:13)
[2018-03-21] MEDS: AMLODIPINE 5 MG TABLET PO SCH ×2 (08:57→17:13)
[2018-03-21] MEDS: Z GUARD REMEDY PASTE 57 GM TUBE TOP SCH ×2 (08:57→20:03)
--- NOTE | 2018-03-21 09:00 | NUR ---
NOTED EPISODES OF AGITATION RESTLESSNESS ATTEMPTS TO GET OUT OF BED AT [facility] FOR FALLS WITH MITTENS TO PREVENT FROM PULLING OUT TUBES PATIENT REPOSITIONED AND REDIRECTED SO MANY TIMES UNABLE TO MEDICATED ANTI PSYCHOTIC WE ARE STILL WAITING FOR SWALLOW EVAL FOR HER THE CERAMIC PAINTER DID CALL AND THE RESPONSE IS THAT THE SLT WILL BE HERE BUT TIME IS UNKNOWN AT THIS TIME WILL CONTINUE TO OBSERVE AND PROVIDE SAFE AND THERAPEUTIC ENVIRONMENT AT ALL TIMES.NGT PATENT WITH FEEDINGS IN PROGRESS ORDERED.
[2018-03-21 11:19] VITALS: BP 141/66
--- NOTE | 2018-03-21 11:53 | NUR ---
DR MORALES HERE TO SEE PATIENT WITH NEW ORDERS AND NOTED
--- NOTE | 2018-03-21 12:12 | NUR ---
Clinical pharmacy note-Vancomycin dosing per pharmacy Subjective: To continue Vancomycin dosing on this patient for pneumonia(aspiration type) Objective: BUN 21 scr 0.5 WBC 9.1 Temp 98.7 Vanco trough level: 16.6 on 03/17 at 1030 Ht 160.02cm Wt 45.983kg Assessment/Plan: Will continue the same dose of 750mg IVPB q10hr . Next dose due tomorrow at 0100. Will monitor renal function & adjust the dose if needed. Will follow daily.
[2018-03-21] MEDS: GABAPENTIN 100 MG CAPSULE NG SCH ×2 (12:24→17:13)
--- NOTE | 2018-03-21 12:30 | NUR ---
THE SLT HERE TO SEE PATIENT STATED THAT PATIENT CAN TOLERATE MECHANICAL SOFT DIET AND SHE PLACED AN ORDER WILL FEED PATIENT AND IF TOLERATED WELL WILL INFORM DR ALBERTO RE MAY BE DISCONTINUE THE NGT.
--- NOTE | 2018-03-21 15:36 | NUR ---
PATIENT TOLERATED 50% OF HER LUNCH DR ALBERTO NOTIFIED STATED OKAY TO STOP THE FEEDING AND MAY LEAVE THE NGT FOR NOW WILL SEE PATIENT TOMORROW.
--- NOTE | 2018-03-21 15:42 | NUR ---
PATIENTS AT THE BEDSIDE AND AWARE OF PLAN OF CARE AND DISCHARGE PLANNING AT THIS TIME.
[2018-03-21 15:49] VITALS: BP 108/50
--- NOTE | 2018-03-21 18:00 | NUR ---
PATIENTS ALEXIS TOOK ALL OF THE PATIENTS PERSONAL BELONGINGS HOME IN PREPARATION FOR DISCHARGE STATED IT WAS OKAY FOR PATIENT TO BE DISCHARGED TO [facility] WHEN SHE IS MEDICALLY READY
--- NOTE | 2018-03-21 18:13 | NUR ---
FED DINNER TOLERATED 100% OF HER DINNER WITH NO COUGHING NO S/S OF ASPIRATION AT THIS TIME NGT PATENT AND INTACT BUT NOT CONNECTED TO FEEDINGS AT THIS TIME
[2018-03-21 19:00] VITALS: BP 149/56
--- NOTE | 2018-03-21 19:20 | NUR ---
RECEIVED PATIENT LYING IN BED. AAOX1. NGT STILL IN PLACE. IV SITE ON RIGHT FA INTACT AND PATENT. PATIENT ANXIOUS AND AGITATED, SCREAMING AND TRYING TO GET OOB. WILL PROVIDE ZYPREXA PRN PER ORDER. REORIENTATION AND DISTRACTION PROVIDED. HAND MITTENS IN PLACE. CIRCULATION CHECKED AROUND HAND. HOB KEPT ELEVATED. SAFETY MEASURE INITIATED AND CALL MARCANO WITHIN REACH.
[2018-03-21] MEDS: OLANZAPINE 10 MG VIAL IM PRN (19:53)
[2018-03-21] MEDS: ACETAMINOPHEN 325 MG TABLET PO PRN (19:53)
[2018-03-22] MEDS: MEROPENEM 1 G in IV NORMAL SALINE 100 ML IV SCH ×3 (01:05→18:00)
[2018-03-22 05:30] VITALS: BP 160/67
[2018-03-22] MEDS: hydrALAZINE HCL 20 MG/1 ML VIAL IV PRN (05:47)
--- NOTE | 2018-03-22 06:04 | NUR ---
AAOX1. IN NO ACUTE DISTRESS. NGT STILL IN PLACE. O2 AT 2LPM VIA NC. O2 SAT AT 99%. IV SITE ON RIGHT FA INTACT AND PATENT. NO ADVERSE EFFECT NOTED FROM IV ABX. HOB KEPT ELEVATED. SAFETY MEASURE MAINTAINED, CALL MARCANO WITHIN REACH.
[2018-03-22 06:35] LABS: BASOPHILS # (AUTO) 0.1 K/uL (0.0-8.0); BASOPHILS % (AUTO) 1.2 % (0.0-2.0); MONOCYTES # (AUTO) 0.6 K/uL (2.0-10.0); NEUTROPHILS # (AUTO) 7.8 K/uL (1.8-8.9)
[2018-03-22 06:41] LABS: CARBON DIOXIDE 35 mmol/L (21-32); CHLORIDE 107 mmol/L (98-107); CREATININE 0.5 mg/dL (0.6-1.3); GLUCOSE 105 mg/dL (74-106); POTASSIUM 3.8 mmol/L (3.5-5.1); UREA NITROGEN, BLOOD 18 mg/dL (7-18)
[2018-03-22 06:45] LABS: EOSINOPHILS # (AUTO) 0.3 K/uL (0.0-0.7); EOSINOPHILS % (AUTO) 3.5 % (0.0-7.0); LYMPHOCYTES # (AUTO) 1.2 K/uL (20.0-40.0); LYMPHOCYTES % (AUTO) 11.8 % (20.5-51.5); MEAN CORPUSCULAR HEMOGLOBIN 28.8 uug (24.7-32.8); MEAN CORPUSCULAR HGB CONC 33 g/dL (32.3-35.6); MEAN CORPUSCULAR VOLUME 86.7 fL (75.5-95.3); MONOCYTES % (AUTO) 5.5 % (0.0-11.0); PLATELET COUNT (AUTO) 462 K/uL (179-408)
[2018-03-22 06:46] LABS: HEMATOCRIT 29.5 % (31.2-41.9); HEMOGLOBIN 9.8 g/dL (10.9-14.3)
[2018-03-22 06:50] VITALS: BP 148/58
--- NOTE | 2018-03-22 06:50 | NUR ---
PATIENT BP WAS 160/67. HYDRALAZINE PRN ORDER GIVEN. BP NOW 148/58.
--- NOTE | 2018-03-22 08:00 | NUR ---
RECEIVED A 72 Y/O FEMALE PATIENT LYING IN BED. AAOX1. BREATHING VIA NC 2LPM, NGT STILL IN PLACE. IV SITE ON RIGHT FA INTACT,HAS HAND MITTENS ON. CIRCULATION CHECKED AROUND HAND. HOB KEPT ELEVATED. SAFETY MEASURE INITIATED AND CALL MARCANO WITHIN REACH.
[2018-03-22 09:00] VITALS: BP 125/53
[2018-03-22] MEDS: LACTOBACILLUS RHAMNOSUS GG 1 EACH CAPSULE PO SCH ×2 (09:31→20:34)
[2018-03-22] MEDS: OLANZAPINE 2.5 MG TABLET PO SCH ×2 (09:31→17:54)
[2018-03-22] MEDS: PANTOPRAZOLE SODIUM 40 MG VIAL IV SCH (09:31)
[2018-03-22] MEDS: CARBIDOPA/LEVODOPA 25-100MG TABLET PO SCH ×3 (09:32→17:54)
[2018-03-22] MEDS: GABAPENTIN 100 MG CAPSULE PO SCH ×3 (09:32→17:54)
[2018-03-22] MEDS: Z GUARD REMEDY PASTE 57 GM TUBE TOP PRN (09:33)
[2018-03-22] MEDS: Z GUARD REMEDY PASTE 57 GM TUBE TOP SCH ×2 (09:34→20:35)
[2018-03-22] MEDS: AMLODIPINE 5 MG TABLET PO SCH ×2 (09:37→17:58)
--- NOTE | 2018-03-22 11:30 | NUR ---
SWALLOW EVALUATION DONE, PATIENT CAN TOLERATE HER DIET, WAITING ORDER TO REMOVE NGT, NEW IV LINE INSERTED ON LT FA G20, PREVIOUS IV WAS INFILTRATED AND DISLODGED
[2018-03-22 11:35] VITALS: BP 128/56
[2018-03-22 16:08] VITALS: BP 125/64
--- NOTE | 2018-03-22 19:30 | NUR ---
Patient stable at start of shift. No acute distress noted. A/Ox1 with confusion. Vital signs within range at beginning of shift. Noted with left forearm 20G IV site which is patent, flushing well, & locked. Patient on an air mattress for redness of the sacral area & skin protection. On ATB therapy for aspiration PNA. Bed placed in low position, locked, x3 side rails up. Bed alarm on. Call light within reach. Will continue to monitor through shift.
[2018-03-22 19:31] VITALS: BP 117/50
[2018-03-23] MEDS: MEROPENEM 1 G in IV NORMAL SALINE 100 ML IV SCH ×2 (01:44→09:26)
[2018-03-23] MEDS: ACETAMINOPHEN 325 MG TABLET PO PRN (02:36)
[2018-03-23 03:38] VITALS: BP 129/66
[2018-03-23 06:18] LABS: BASOPHILS # (AUTO) 0.1 K/uL (0.0-8.0); EOSINOPHILS # (AUTO) 0.3 K/uL (0.0-0.7); EOSINOPHILS % (AUTO) 2.6 % (0.0-7.0); HEMOGLOBIN 9.2 g/dL (10.9-14.3); LYMPHOCYTES # (AUTO) 1.1 K/uL (20.0-40.0); LYMPHOCYTES % (AUTO) 11.3 % (20.5-51.5); MEAN CORPUSCULAR HGB CONC 34 g/dL (32.3-35.6); MEAN CORPUSCULAR VOLUME 84.8 fL (75.5-95.3); MONOCYTES # (AUTO) 0.7 K/uL (2.0-10.0); MONOCYTES % (AUTO) 6.9 % (0.0-11.0); NEUTROPHILS # (AUTO) 7.9 K/uL (1.8-8.9); NEUTROPHILS % (AUTO) 78.2 % (38.5-71.5); PLATELET COUNT (AUTO) 452 K/uL (179-408); RED BLOOD CELL COUNT(AUTO) 3.18 MIL/uL (3.63-4.92); WHITE BLOOD COUNT (AUTO) 10.1 K/uL (3.8-11.8)
--- NOTE | 2018-03-23 06:49 | NUR ---
Patient stable during the shift with no acute distress. Vital signs WNL. Frequently tries to get out of bed. Needs frequent reorienting. Safety measures implemented. Bed kept in low position, locked, x3 side rails up. All needs attended to. Patient kept clean, dry, changed per soiling. Skin care provided. Call light within reach. Will endorse to day shift nurse.
[2018-03-23 06:59] LABS: ALANINE AMINOTRANSFERASE 17 U/L (14-59); ALKALINE PHOSPHATASE 79 U/L (50-136); ASPARTATE AMINOTRANSFERASE 16 U/L (15-37); BILIRUBIN,TOTAL 0.5 mg/dL (0.2-1.0); CARBON DIOXIDE 33 mmol/L (21-32); CHLORIDE 103 mmol/L (98-107); CREATININE 0.6 mg/dL (0.6-1.3); GLUCOSE 99 mg/dL (74-106); MAGNESIUM 2.1 mg/dL (1.8-2.4); PHOSPHOROUS 2.8 mg/dL (2.5-4.9); POTASSIUM 3.8 mmol/L (3.5-5.1); TOTAL PROTEIN, SERUM 5.8 g/dL (6.4-8.2); UREA NITROGEN, BLOOD 25 mg/dL (7-18)
[2018-03-23] MEDS: CARBIDOPA/LEVODOPA 25-100MG TABLET PO SCH ×3 (08:05→16:35)
[2018-03-23] MEDS: OLANZAPINE 2.5 MG TABLET PO SCH ×2 (08:05→16:35)
[2018-03-23] MEDS: LACTOBACILLUS RHAMNOSUS GG 1 EACH CAPSULE PO SCH (08:05)
[2018-03-23] MEDS: Z GUARD REMEDY PASTE 57 GM TUBE TOP SCH (08:05)
[2018-03-23] MEDS: AMLODIPINE 5 MG TABLET PO SCH ×2 (08:05→16:35)
[2018-03-23] MEDS: GABAPENTIN 100 MG CAPSULE PO SCH ×3 (08:05→16:35)
[2018-03-23] MEDS ORDERED: PANTOPRAZOLE SODIUM 40 MG TABLET.DR PO SCH (08:24)
[2018-03-23 11:42] VITALS: BP 105/45
[2018-03-23] MEDS ORDERED: SOD FERRIC GLUC COMPLX/SUCROSE 125 MG in IV NORMAL SALINE 100 ML IV SCH (14:00)
[2018-03-23] MEDS ORDERED: MENT71OI TOP (15:16)
[2018-03-23] MEDS ORDERED: OLAN2.5T3 PO (15:16)
[2018-03-23] MEDS ORDERED: LACT1CAP57 PO (15:16)
[2018-03-23] MEDS ORDERED: GABA-532 PO (15:16)
[2018-03-23] MEDS ORDERED: PROT946L PO (15:16)
[2018-03-23] MEDS ORDERED: ALBU2.5V7 NEB (15:16)
[2018-03-23 16:02] VITALS: BP 139/70
[2018-03-23 16:35] VITALS: BP 139/70
--- NOTE | 2018-03-23 18:01 | NUR ---
D/C ORDERS RECEIVED NOTED AND CARRIED OUT.D/C INSTRUCTION AND EDUCATION GIVEN TO THE PT D/C ARMANI PER MD ORDERSMPT LEFT THE FACILITY VIA PRIVATE VAN IN STABLE CONDITION
== END 2018-03-23 18:00 | DRG 871 ==
LOC: MED 14:20 → TELE 14:31 → MED 03-16 12:27
PROC: 0DH67UZ Insertion of Feeding Device into Stomach, Via Natural or Artificial Opening (ICD-10-PCS; principal; 2018-03-15)
PROC: 3E0G76Z Introduction of Nutritional Substance into Upper GI, Via Natural or Artificial Opening (ICD-10-PCS; 2018-03-15)
DX: A41.9 Sepsis, unspecified organism (principal); J69.0 Pneumonitis due to inhalation of food and vomit; G93.41 Metabolic encephalopathy; E43 Unspecified severe protein-calorie malnutrition; J91.8 Pleural effusion in other conditions classified elsewhere; N39.0 Urinary tract infection, site not specified; Z68.1 Body mass index [BMI] 19.9 or less, adult; K92.1 Melena; R65.20 Severe sepsis without septic shock; B96.20 Unspecified Escherichia coli [E. coli] as the cause of diseases classified elsewhere; G31.83 Neurocognitive disorder with Lewy bodies; F02.80 Dementia in other diseases classified elsewhere, unspecified severity, without behavioral disturbance, psychotic disturbance, mood disturbance, and anxiety; R62.7 Adult failure to thrive; Z87.440 Personal history of urinary (tract) infections; I11.9 Hypertensive heart disease without heart failure; R13.10 Dysphagia, unspecified; E87.6 Hypokalemia; D50.9 Iron deficiency anemia, unspecified; F41.9 Anxiety disorder, unspecified; K21.9 Gastro-esophageal reflux disease without esophagitis; I70.0 Atherosclerosis of aorta; Z88.0 Allergy status to penicillin; E87.8 Other disorders of electrolyte and fluid balance, not elsewhere classified; Z74.09 Other reduced mobility
CPT/HCPCS: 36415; 70450; 71045; 82652; 83550; 83735; 84100; 84443; 85025; 87040; 87077; 87086; 92526; 92610; 94640; 94664; A4217; A4663; C1758; C9113; J0360; J1956; J2185; J2270; J2358; J2916; J3010; J3370; J3480; J3490; J3590; J7040; J7042; J7050; J7060